=== PATIENT | female | born 1990 | race Caucasian/White ===

== ENCOUNTER 2020-10-29 10:48 | Outpatient (REF) | payer OTHER, SELFPAY | END 2020-10-29 10:49 | disposition home or self-care (01) | LOC: HO.LAB 10:48 | PROVIDERS: PCP Internal Medicine; Visit Provider Advanced Practice Midwife | DX: O21.9 Vomiting of pregnancy, unspecified (principal) | CPT/HCPCS: 81025; 87086; 87147; 99212 ==

== ENCOUNTER → 2020-11-29 11:18 | Outpatient (BNVA) | payer OTHER, SELFPAY | PROVIDERS: PCP Internal Medicine; Visit Provider Advanced Practice Midwife | DX: O21.0 Mild hyperemesis gravidarum (principal); Z3A.00 Weeks of gestation of pregnancy not specified | CPT/HCPCS: 81003; 99212 ==

== ENCOUNTER → 2020-12-02 10:05 | Outpatient (BNVA) | payer OTHER, SELFPAY | PROVIDERS: PCP Internal Medicine; Visit Provider Advanced Practice Midwife | DX: Z13.89 Encounter for screening for other disorder (principal) | CPT/HCPCS: 99212 ==

== ENCOUNTER 2020-12-04 15:29 | Outpatient (REF) | payer OTHER, SELFPAY ==
[2020-12-04 16:52] LABS: MANUAL DIFF FLAG NO
[2020-12-04 16:59] LABS: Basophils Percent Auto 0.5 % (0-2); Eosinophils Absolute Auto 0.2 X10*3/uL (0.0-0.4); Eosinophils Percent Auto 1.9 % (0-4); Hematocrit 36.2 % (37-47); Hemoglobin 11.8 g/dl (12.0-16.0); Imm Gran Abs Auto 0.03 X10*3/uL (0.00-0.03); Imm Gran Pct Auto 0.4 % (0.0-0.4); Lymphocytes Absolute Auto 1.5 X10*3/uL (1.2-4.9); Lymphocytes Percent Auto 17.7 % (20-40); Mean Corpuscular HGB Conc 32.6 g/dl (31.0-35.0); Mean Corpuscular Hemoglobin 27.4 pg (27.0-33.0); Mean Corpuscular Volume 84.2 fL (80-98); Mean Platelet Volume 10.9 fL (9.4-12.3); Monocytes Absolute Auto 0.5 X10*3/uL (0.1-1.2); Monocytes Percent Auto 5.7 % (2-11); Neutrophils Absolute Auto 6.2 X10*3/uL (2.0-8.3); Neutrophils Percent Auto 73.8 % (45-73); Platelet Count 263 X10*3/uL (160-400); Red Cell Distribution Width 12.9 % (11.0-16.0); White Blood Count 8.4 X10*3/uL (4.8-10.8)
[2020-12-04 17:22] LABS: Amphetamine Screen Urine Not Detected (Not Detect); Barbiturates, Urine Not Detected (Not Detect); Benzodiazepines Screen Urine Not Detected (Not Detect); Cannabinoid Screen Urine Not Detected (Not Detect); Cocaine Screen Urine Not Detected (Not Detect); Opiate Screen Urine Not Detected (Not Detect); Phencyclidine Screen Urine Not Detected (Not Detect)
[2020-12-04 17:44] LABS: Syphilis Screen Nonreactive (Nonreactive)
[2020-12-05 04:11] LABS: HIV AB/AG Nonreactive (Nonreactive); HIV Num 1 0.09 S/CO (0.00-0.99); ~HepC Num1 0.08 S/CO (0.00-0.79); ~Hepatitis C Antibody Nonreactive (Nonreactive)
[2020-12-05 04:12] LABS: HBsAGNum1 0.18 S/CO (0.00-0.99); Hepatitis B Surface Antigen Negative (Negative)
[2020-12-05 05:18] LABS: Rubella IgG Antibody 1.08 Index
[2020-12-05 09:07] LABS: BV Int Neg Control Negative (Negative); BV Int Pos Control Positive (Positive)
[2020-12-05 12:46] LABS: C. trachomatis RNA TMA NOT DETECTED (NOT DETECTED); N. gonorrhoeae RNA TMA NOT DETECTED (NOT DETECTED)
== END 2020-12-04 15:30 | disposition home or self-care (01) ==
LOC: HO.LAB 15:29
PROVIDERS: PCP Internal Medicine; Visit Provider Advanced Practice Midwife
DX: O99.341 Other mental disorders complicating pregnancy, first trimester (principal); F43.9 Reaction to severe stress, unspecified; Z20.2 Contact with and (suspected) exposure to infections with a predominantly sexual mode of transmission; Z3A.09 9 weeks gestation of pregnancy
CPT/HCPCS: 80307; 81003; 85025; 86762; 86780; 86787; 86803; 86850; 86900; 86901; 87086; 87340; 87389; 87480; 87491; 87510; 87591; 87660; 99212

== ENCOUNTER 2020-12-06 13:12 | Outpatient (REF) | payer OTHER, SELFPAY ==
--- NOTE | ~2020-12-06 | US_ITS ---
EXAMINATION: OBSTETRICAL ULTRASOUND, FIRST TRIMESTER HISTORY: 30-year-old at 10.0 weeks of gestation Screening for uncertain dates LMP: 09/27/2020 COMPARISON: 12/12/2019 TECHNIQUE: Real time transabdominal imaging with color and M-mode Doppler. FINDINGS: A single, live IUP CRL of 31 mm c/w 10.0wks is noted. Heart Rate: 165 beats per minute. Too early for NT measurement. Right ovary is normal. Left ovary is not seen GESTATIONAL AGE: 1. GA from LMP: 10.0 wks 2. GA from AUA: 10.0 wks ESTIMATED DATE OF DELIVERY: 1. ELIU from LMP: 07/04/2021 2. ELIU from AUA: 07/04/2021 US/US OB <= 14 weeks fetus IMPRESSION: 1. Single live IUP 2. CRL consistent with 10.0 weeks 3. Too early for NT evaluation A follow-up is been scheduled in 2 weeks for NT measurement. Thank you very much for this referral.
== END 2020-12-06 13:13 | disposition home or self-care (01) ==
LOC: HO.US 13:12
PROVIDERS: Visit Provider Advanced Practice Midwife
DX: Z34.91 Encounter for supervision of normal pregnancy, unspecified, first trimester (principal)
CPT/HCPCS: 76801

== ENCOUNTER 2020-12-20 13:59 | Outpatient (REF) | payer OTHER, SELFPAY ==
--- NOTE | ~2020-12-20 | US_ITS ---
EXAMINATION: OBSTETRICAL ULTRASOUND, FIRST TRIMESTER HISTORY: 30-year-old at 12.0 weeks of gestation NT screening COMPARISON: 12/06/2020 TECHNIQUE: Real time transabdominal imaging with color and M-mode Doppler. FINDINGS: A single, live IUP CRL of 55 mm c/w 12.1wks is noted. Heart Rate: 160 beats per minute. Normal yolk sac seen. NT was 1.3.mm. NB Present The embryo appears sonographically wnl for this GA. Left ovary contains benign cyst measuring 2.8 x 2.4 x 3.1 cm Small subchorionic bleed noted. GESTATIONAL AGE: 1. Established GA: 12.0 wks 2. GA from AUA: 12.1 wks ESTIMATED DATE OF DELIVERY: 1. Established ELIU: 07/04/2021 2. ELIU from AUA: 07/03/2021 US/US OB 1T nuc measure IMPRESSION: 1. A single live IUP 2. Size equals dates 3. NT of 1.3 mm 4. Small subchorionic hematoma MFM Consultation: I reviewed the ultrasound findings along with significance of NT measurement. The NT of less than 3mm is generally reassuring. However, the sensitivity for T21 detection is only 60%. I reviewed the availability of serum aneuploidy screening which includes cell-free DNA and placental protein based tests. I discussed the sensitivity, false-positive rate, and other limitations associated with each test. I also reviewed the availability of invasive diagnostic tests that are associated small but definite risk of miscarriage. We also reviewed the differences between screening tests and diagnostic tests. After our discussion, she opted for the First trimester screening that is based on cell-free DNA or non-invasive testing (NIPT). The result will be faxed to your office in approximately 7 days. A follow up at 18 weeks for survey has been scheduled. Thank you very much for this referral. Total time 20 minutes. The time spent was devoted to counseling the patient about the disease and diagnosis, coordinating care including reviewing her records, pertinent lab data and studies, as well as discussing diagnostic evaluation and workup, plan therapeutic interventions and future disposition of care. This includes any additional research needed to obtain further information in formulating the plan of care of this patient. This note was generated with a voice recognition program. Please excuse any errors which may have been overlooked during my review of this note. Sometimes these errors may affect the content or meaning of a given sentence.
[2020-12-23 20:16] LABS: C. trachomatis RNA TMA NOT DETECTED (NOT DETECTED); N. gonorrhoeae RNA TMA NOT DETECTED (NOT DETECTED)
== END 2020-12-20 14:00 | disposition home or self-care (01) ==
LOC: HO.US 13:59
PROVIDERS: Visit Provider Advanced Practice Midwife
DX: Z34.91 Encounter for supervision of normal pregnancy, unspecified, first trimester (principal); Z20.2 Contact with and (suspected) exposure to infections with a predominantly sexual mode of transmission; Z36.82 Encounter for antenatal screening for nuchal translucency
CPT/HCPCS: 36415; 76813; 87491; 87591

== ENCOUNTER 2020-12-25 13:03 | Outpatient (REF) | payer OTHER, SELFPAY ==
[2020-12-26 10:19] LABS: BV Int Neg Control Negative (Negative); BV Int Pos Control Positive (Positive)
[2020-12-26 20:51] LABS: C. trachomatis RNA TMA NOT DETECTED (NOT DETECTED); N. gonorrhoeae RNA TMA NOT DETECTED (NOT DETECTED)
[2021-01-08 15:22] LABS: HPV mRNA E6/E7 rflx Not Detected (Not Detected)
== END 2020-12-25 13:04 | disposition home or self-care (01) ==
LOC: HO.LAB 13:03
PROVIDERS: PCP Internal Medicine; Visit Provider Advanced Practice Midwife
DX: O21.0 Mild hyperemesis gravidarum (principal); O99.891 Other specified diseases and conditions complicating pregnancy; N89.8 Other specified noninflammatory disorders of vagina; O26.891 Other specified pregnancy related conditions, first trimester; R87.610 Atypical squamous cells of undetermined significance on cytologic smear of cervix (ASC-US); O99.820 Streptococcus B carrier state complicating pregnancy; Z3A.12 12 weeks gestation of pregnancy
CPT/HCPCS: 36415; 87480; 87491; 87510; 87591; 87624; 87660; 88141; 88142; 99212

== ENCOUNTER → 2021-01-22 13:34 | Outpatient (BNVA) | payer OTHER, SELFPAY | PROVIDERS: PCP Internal Medicine; Visit Provider Advanced Practice Midwife | DX: Z34.90 Encounter for supervision of normal pregnancy, unspecified, unspecified trimester (principal); Z3A.16 16 weeks gestation of pregnancy | CPT/HCPCS: 81003; 90686; 99212 ==

== ENCOUNTER 2021-02-07 12:57 | Outpatient (REF) | payer OTHER, SELFPAY ==
--- NOTE | ~2021-02-07 | US_ITS ---
EXAMINATION: US OBSTETRICAL CLINICAL INFORMATION: 30-year-old at 19.0 weeks of gestation Screening for anomaly COMPARISON: 12/20/2020 TECHNIQUE: Real-time transabdominal ultrasound was performed using C1-5 megahertz transducer. FINDINGS: A single, active, fetus is seen in breech presentation. The placenta is anterior without previa, and the amniotic fluid volume is wnl. MEASUREMENTS: 1. Biparietal Diameter: 4.1 cm; 18.4 wks 2. Occipital Frontal Diameter: 5.9 cm 3. Head Circumference: 16.5 cm; 19.2 wks 4. Abdominal Circumference: 12.9 cm; 18.3 wks 5. Femur Length: 2.9 cm; 18.6 wks 6. Humerus Length: 3.0 cm; 19.6 wks 7. Tibia Length: 2.5 cm; 18.5 wks 8. Ulna Length: 2.7 cm; 20.0 wks 9. Lateral ventricle: 0.6 cm 10. Cerebellum: 1.87 cm; 19.3 wks 11. Cisterna Magna: 0.3 cm 12. Nuchal Fold: 4.6 mm 13. Heart Rate: 135 beats per minute Rt ovary: normal Lt ovary: normal Cervical length 3.6 cm on T/A. GESTATIONAL AGE: 1. Established GA: 19.0 wks 2. GA from [facility]: 18.6 wks ESTIMATED DATE OF DELIVERY: 1. Established ELIU: 07/04/2021 2. ELIU from [facility]: 07/05/2021 ANATOMY: The visualized anatomy includes but not limited to: 1. Cranium: Normal 2. Intracranial anatomy: cavum septum pellucidi, lateral ventricles, choroid plexus, cerebellum, posterior fossa, third and fourth ventricles. 3. face: orbits, lip/palate, profile, nasal bone 4. Heart: four-chamber view of the heart, ventricular septum, foramen ovale, pulmonary vein, left and right outflow tracts, three-vessel view, 3 vessel trachea view, aortic and ductal arches, situs.. 5. Diaphragm: Normal 6. Abdominal wall: Normal 7. Cord Insertion: Normal 8. Spine: Cervical, thoracic, lumbar, sacral. 9. Stomach: Normal size and shape 10. Right Kidney: Normal 11. Left Kidney: Normal 12. 3 vessel cord: Normal 13. Upper extremity: Open hands, fifth digit. 14. Lower extremity: Tibia, fibula, bilateral feet. 15. Bladder: Normal 16. Genitalia: Male, patient aware US/US OB /maternal detail IMPRESSION: 1. Single, living, intrauterine with appropriate biometry. 2. Normal survey DISCUSSION: I reviewed today's ultrasound findings. We discussed the limitations of ultrasound in diagnosing aneuploidy and other congenital abnormalities. I reviewed the differences between screening test and diagnostic test. Amniocentesis was discussed and declined. She was informed that the baseline incidence of congenital abnormalities is approximately 3-5%. Not all these conditions are diagnosable in utero. RECOMMENDATIONS: Follow-up when necessary Thank you for allowing me to participate in her care. Total time 20 minutes. The time spent was devoted to counseling the patient about the disease and diagnosis, coordinating care including reviewing her records, pertinent lab data and studies, as well as discussing diagnostic evaluation and workup, plan therapeutic interventions and future disposition of care. This includes any additional research needed to obtain further information in formulating the plan of care of this patient. This note was generated with a voice recognition program. Please excuse any errors which may have been overlooked during my review of this note. Sometimes these errors may affect the content or meaning of a given sentence.
== END 2021-02-07 12:58 | disposition home or self-care (01) ==
LOC: HO.US 12:57
PROVIDERS: PCP Internal Medicine; Visit Provider Advanced Practice Midwife
DX: Z36.3 Encounter for antenatal screening for malformations (principal)
CPT/HCPCS: 76811

== ENCOUNTER 2021-02-21 10:25 | Outpatient (REF) | payer OTHER, SELFPAY ==
[2021-02-21 11:48] LABS: MANUAL DIFF FLAG NO
[2021-02-21 11:55] LABS: Basophils Absolute Auto 0.1 X10*3/uL (0.0-0.2); Basophils Percent Auto 0.5 % (0-2); Eosinophils Absolute Auto 0.2 X10*3/uL (0.0-0.4); Eosinophils Percent Auto 2.2 % (0-4); Hematocrit 34.4 % (37-47); Hemoglobin 10.9 g/dl (12.0-16.0); Imm Gran Abs Auto 0.05 X10*3/uL (0.00-0.03); Imm Gran Pct Auto 0.5 % (0.0-0.4); Lymphocytes Absolute Auto 1.3 X10*3/uL (1.2-4.9); Lymphocytes Percent Auto 13.3 % (20-40); Mean Corpuscular HGB Conc 31.7 g/dl (31.0-35.0); Mean Corpuscular Hemoglobin 26.6 pg (27.0-33.0); Mean Corpuscular Volume 83.9 fL (80-98); Monocytes Absolute Auto 0.5 X10*3/uL (0.1-1.2); Monocytes Percent Auto 4.7 % (2-11); Neutrophils Absolute Auto 7.8 X10*3/uL (2.0-8.3); Neutrophils Percent Auto 78.8 % (45-73); Platelet Count 229 X10*3/uL (160-400); Red Cell Distribution Width 13.9 % (11.0-16.0); White Blood Count 9.9 X10*3/uL (4.8-10.8)
[2021-02-21 12:31] LABS: Alanine Aminotransferase 36 U/L (0-31); Anion Gap 12 (12-20); Aspartate Amino Transferase 29 U/L (5-31); Blood Urea Nitrogen 6 mg/dL (9-16); Calcium 8.9 mg/dL (8.4-10.2); Carbon Dioxide 23 mmol/L (22-29); Chloride 106 mmol/L (96-108); Estimated Glomerular Filt Rate > 60; Glucose Fasting 77 mg/dL (60-99); Potassium 4.4 mmol/L (3.3-5.1); Sodium 137 mmol/L (135-145)
== END 2021-02-21 10:26 | disposition home or self-care (01) ==
LOC: HO.LAB 10:25
PROVIDERS: Nurse Practitioner Family; PCP Internal Medicine; Visit Provider Obstetrics & Gynecology
DX: O26.892 Other specified pregnancy related conditions, second trimester (principal); U07.1 COVID-19; R10.11 Right upper quadrant pain; Z3A.21 21 weeks gestation of pregnancy
CPT/HCPCS: 36415; 80048; 84450; 84460; 85025; 99212

== ENCOUNTER 2021-03-27 10:48 | Outpatient (REF) | payer OTHER, SELFPAY ==
[2021-03-27 12:59] LABS: Hematocrit 32.4 % (37-47); Hemoglobin 10.2 g/dl (12.0-16.0); Mean Corpuscular HGB Conc 31.5 g/dl (31.0-35.0); Mean Corpuscular Hemoglobin 26.6 pg (27.0-33.0); Mean Corpuscular Volume 84.6 fL (80-98); Mean Platelet Volume 11.3 fL (9.4-12.3); Platelet Count 220 X10*3/uL (160-400); Red Blood Count 3.83 X10*6/uL (4.20-5.50); White Blood Count 9.7 X10*3/uL (4.8-10.8)
[2021-03-28 03:56] LABS: Syphilis Screen Nonreactive (Nonreactive)
== END 2021-03-27 10:49 | disposition home or self-care (01) ==
LOC: HO.LAB 10:48
PROVIDERS: PCP Internal Medicine; Visit Provider Advanced Practice Midwife
DX: Z34.92 Encounter for supervision of normal pregnancy, unspecified, second trimester (principal); Z3A.25 25 weeks gestation of pregnancy
CPT/HCPCS: 36415; 81003; 85027; 86780; 99212

== ENCOUNTER 2021-04-01 10:31 | Outpatient (REF) | payer OTHER, SELFPAY ==
[2021-04-01 13:59] LABS: Glucose 1 Hour PP 50gm Dose 114 mg/dL (60-140)
[2021-04-01 14:07] LABS: Glucose Urine UA NEG (NEG); Leukocyte Esterase Urine NEG (NEG); Nitrite Urine NEG (NEG); PH 6.5 (5.0-8.0); Specific Gravity - Urine 1.015 (1.005-1.025); Urine Blood NEG (NEG); Urine Ketones NEG (NEG); Urine Protein TRACE MG/DL (NEG-TRACE)
[2021-04-01 14:08] LABS: Appearance Urine HAZY; Color Urine YELLOW
[2021-04-01 14:20] LABS: RBC Urine 0-2 /HPF (0); Squamous Epithelial Cell Urine 1+ /LPF; WBC Urine 0-2 /HPF (0-4)
== END 2021-04-01 10:32 | disposition home or self-care (01) ==
LOC: HO.LAB 10:31
PROVIDERS: PCP Internal Medicine; Visit Provider Advanced Practice Midwife
DX: O26.892 Other specified pregnancy related conditions, second trimester (principal); R10.9 Unspecified abdominal pain; Z3A.26 26 weeks gestation of pregnancy
CPT/HCPCS: 36415; 81001; 81003; 87086; 99212

== ENCOUNTER 2021-04-17 09:55 | Outpatient (REF) | payer OTHER, SELFPAY ==
[2021-04-17 11:55] LABS: Hematocrit 32.2 % (37-47); Hemoglobin 10.3 g/dl (12.0-16.0); Mean Corpuscular Hemoglobin 27.2 pg (27.0-33.0); Mean Corpuscular Volume 85.2 fL (80-98); Mean Platelet Volume 10.7 fL (9.4-12.3); Platelet Count 220 X10*3/uL (160-400); Red Blood Count 3.78 X10*6/uL (4.20-5.50); Red Cell Distribution Width 14.5 % (11.0-16.0); White Blood Count 8.3 X10*3/uL (4.8-10.8)
[2021-04-17 12:14] LABS: Alanine Aminotransferase 8 U/L (0-31); Aspartate Amino Transferase 13 U/L (5-31)
[2021-04-17 12:15] LABS: Creatinine Urine 177.02 mg/dL; Protein/Creatinine Ratio, Ur 0.08 (<0.2); Total Protein Urine Random 15 mg/dL (<12)
== END 2021-04-17 09:56 | disposition home or self-care (01) ==
LOC: HO.LAB 09:55
PROVIDERS: PCP Internal Medicine; Visit Provider Advanced Practice Midwife
DX: O26.899 Other specified pregnancy related conditions, unspecified trimester (principal); R51.9 Headache, unspecified; R79.89 Other specified abnormal findings of blood chemistry
CPT/HCPCS: 36415; 81003; 84156; 84450; 84460; 85027; 99212

== ENCOUNTER → 2021-05-05 14:39 | Outpatient (BNVA) | payer OTHER, SELFPAY | PROVIDERS: PCP Internal Medicine; Visit Provider Advanced Practice Midwife | DX: O99.820 Streptococcus B carrier state complicating pregnancy (principal); O26.893 Other specified pregnancy related conditions, third trimester; R94.5 Abnormal results of liver function studies; Z3A.31 31 weeks gestation of pregnancy | CPT/HCPCS: 99212 ==

== ENCOUNTER 2021-05-20 14:45 | Outpatient (REF) | payer OTHER, SELFPAY | END 2021-05-20 14:46 | disposition home or self-care (01) | LOC: HO.LAB 14:45 | PROVIDERS: PCP Internal Medicine; Visit Provider Advanced Practice Midwife | DX: O26.893 Other specified pregnancy related conditions, third trimester (principal); R10.9 Unspecified abdominal pain; Z3A.33 33 weeks gestation of pregnancy | CPT/HCPCS: 87086; 99212 ==

== ENCOUNTER → 2021-06-04 09:50 | Outpatient (BNVA) | payer OTHER, SELFPAY | PROVIDERS: PCP Internal Medicine; Visit Provider Obstetrics & Gynecology | DX: Z34.83 Encounter for supervision of other normal pregnancy, third trimester (principal); Z3A.35 35 weeks gestation of pregnancy | CPT/HCPCS: 99212 ==

== ENCOUNTER 2021-06-13 09:43 | Outpatient (REF) | payer OTHER, SELFPAY ==
[2021-06-13 14:00] LABS: CT PCR DETECTED (Not Detect.); NG PCR NOT DETECTED (Not Detect.)
[2021-06-15 11:57] LABS: BV Int Neg Control Negative (Negative); BV Int Pos Control Positive (Positive)
== END 2021-06-13 09:44 | disposition home or self-care (01) ==
LOC: HO.LAB 09:43
PROVIDERS: PCP Internal Medicine; Visit Provider Advanced Practice Midwife
DX: O32.1XX0 Maternal care for breech presentation, not applicable or unspecified (principal)
CPT/HCPCS: 81003; 87480; 87491; 87510; 87591; 87660; 99212

== ENCOUNTER 2021-06-13 11:18 | Outpatient (REF) | payer OTHER, SELFPAY ==
--- NOTE | ~2021-06-13 | US_ITS ---
EXAMINATION: OB ULTRASOUND CLINICAL INFORMATION: Assess position COMPARISON: 02/07/2021 TECHNIQUE: Standard transabdominal ultrasound FINDINGS: Single live region presenting cephalic position. Placenta is anterior grade 2. Normal amount of amniotic fluid. SHARON 12 cm Normal heart rate of 158 bpm. Biophysical profile performed with assessment of breathing, gross movement, tone, reactive heart rate, and quantitative amniotic fluid index. breathin/2 Gross body movement: 2/2 tone: 2/2 Reactive heart rate: 2/2 Quantitative amniotic fluid volume: 2/2 US/US OB limited IMPRESSION: Normal biophysical profile. Fetus present in cephalic position.
== END 2021-06-13 11:19 | disposition home or self-care (01) ==
LOC: HO.US 11:18
PROVIDERS: Visit Provider Advanced Practice Midwife
DX: O32.1XX0 Maternal care for breech presentation, not applicable or unspecified (principal); Z3A.00 Weeks of gestation of pregnancy not specified
CPT/HCPCS: 76815

== ENCOUNTER → 2021-06-20 09:21 | Outpatient (BNVA) | payer OTHER, SELFPAY | PROVIDERS: PCP Internal Medicine; Visit Provider Advanced Practice Midwife | DX: O98.313 Other infections with a predominantly sexual mode of transmission complicating pregnancy, third trimester (principal); A74.9 Chlamydial infection, unspecified; O99.343 Other mental disorders complicating pregnancy, third trimester; F43.9 Reaction to severe stress, unspecified; Z3A.38 38 weeks gestation of pregnancy | CPT/HCPCS: 99212 ==

== ENCOUNTER 2021-06-27 13:16 | Outpatient (REF) | payer OTHER, SELFPAY ==
[2021-06-28 00:58] LABS: CT PCR NOT DETECTED (Not Detect.); NG PCR NOT DETECTED (Not Detect.)
== END 2021-06-27 13:17 | disposition home or self-care (01) ==
LOC: HO.LAB 13:16
PROVIDERS: PCP Internal Medicine; Visit Provider Advanced Practice Midwife
DX: O26.893 Other specified pregnancy related conditions, third trimester (principal); A74.9 Chlamydial infection, unspecified; Z20.2 Contact with and (suspected) exposure to infections with a predominantly sexual mode of transmission; Z3A.39 39 weeks gestation of pregnancy
CPT/HCPCS: 81003; 87491; 87591; 99212

== ENCOUNTER → 2021-07-08 11:19 | Outpatient (BNVA) | payer OTHER, SELFPAY | PROVIDERS: PCP Internal Medicine; Visit Provider Obstetrics & Gynecology | DX: O48.0 Post-term pregnancy (principal); Z3A.40 40 weeks gestation of pregnancy | CPT/HCPCS: 99212 ==

== ENCOUNTER 2021-07-11 14:00 | Outpatient (REF) | payer OTHER, SELFPAY ==
--- NOTE | ~2021-07-11 | US_ITS ---
EXAMINATION: OBSTETRICAL ULTRASOUND, Follow up HISTORY: 31-year-old at the 41.0 weeks of gestation Postterm Size date discrepancy COMPARISON: 06/13/2021 TECHNIQUE: Real time transabdominal imaging with color and M-mode Doppler. PRESENTATION: Vertex PLACENTA LOCATION: Anterior without previa AMNIOTIC FLUID: SHARON 2.5 cm MEASUREMENTS: 1. Biparietal Diameter: 9.2 cm; 37.3 wks 2. Head Circumference: 33.7 cm; 38.5 wks 3. Abdominal Circumference: 33.2 cm; 37.1 wks 4. Femur Length: 7.3 cm; 37.1 wks 5. Heart Rate: 138 beats per minute WEIGHT: EFW: 3168 grams (7 lbs 0 oz) --N/A BIOPHYSICAL PROFILE: Motion: 2 Tone: 2 Breathin Amniotic Fluid: 2 Total score: 8/8 GESTATIONAL AGE: 1. Established GA: 41.0 wks 2. GA from AUA: 37.5 wks ESTIMATED DATE OF DELIVERY: 1. Established ELIU: 07/04/2021 2. ELIU from AUA: 07/27/2021 US/US OB follow up IMPRESSION: 1. A single active fetus is in vertex presentation 2. Size equals dates 3. BPP of 8/8 with SHARON of 2.5 cm. She reports having had regular contractions overnight. Her cervix is 3 cm dilated. In addition she is reporting fluid leakage. I reviewed today's findings and gave her reassurance. The amniotic fluid index is low. Recommended that she proceeded to labor and delivery for early labor management. Thank you very much for this referral. Total time 20 minutes. The time spent was devoted to counseling the patient about the disease and diagnosis, coordinating care including reviewing her records, pertinent lab data and studies, as well as discussing diagnostic evaluation and workup, plan therapeutic interventions and future disposition of care. This includes any additional research needed to obtain further information in formulating the plan of care of this patient. This note was generated with a voice recognition program. Please excuse any errors which may have been overlooked during my review of this note. Sometimes these errors may affect the content or meaning of a given sentence.
== END 2021-07-11 14:01 | disposition home or self-care (01) ==
LOC: HO.US 14:00
PROVIDERS: PCP Internal Medicine; Visit Provider Advanced Practice Midwife
DX: O48.0 Post-term pregnancy (principal)
CPT/HCPCS: 59025; 76816; 81003; 99212

== ENCOUNTER → 2021-09-17 12:52 | Outpatient (BNVA) | payer OTHER, SELFPAY | PROVIDERS: PCP Internal Medicine; Visit Provider Obstetrics & Gynecology | DX: Z39.2 Encounter for routine postpartum follow-up (principal); Z30.09 Encounter for other general counseling and advice on contraception; R87.610 Atypical squamous cells of undetermined significance on cytologic smear of cervix (ASC-US) | CPT/HCPCS: 99212 ==

== ENCOUNTER → 2021-10-03 13:25 | Outpatient (BNVA) | payer OTHER, SELFPAY | PROVIDERS: PCP Internal Medicine; Visit Provider Obstetrics & Gynecology | DX: Z30.42 Encounter for surveillance of injectable contraceptive (principal) | CPT/HCPCS: 96372 ==

== ENCOUNTER 2021-12-31 14:27 | Outpatient (REF) | payer OTHER, SELFPAY | END 2021-12-31 14:28 | disposition home or self-care (01) | LOC: HO.LAB 14:27 | PROVIDERS: PCP Internal Medicine; Visit Provider Obstetrics & Gynecology | DX: R87.610 Atypical squamous cells of undetermined significance on cytologic smear of cervix (ASC-US) (principal) | CPT/HCPCS: 57454; 88305 ==

== ENCOUNTER → 2022-01-19 15:24 | Outpatient (BNVA) | payer OTHER, SELFPAY | PROVIDERS: Visit Provider Obstetrics & Gynecology | DX: R87.610 Atypical squamous cells of undetermined significance on cytologic smear of cervix (ASC-US) (principal); Z30.2 Encounter for sterilization | CPT/HCPCS: 99212 ==

== ENCOUNTER 2022-01-23 09:25 | Day surgery (SDC) | payer OTHER, SELFPAY ==
--- NOTE | 2022-01-21 13:35 | HO.ANESPROP2 ---
Documented by User: Val Umaña NP 01/21/22 13:36 HPI - Anesthesia Eval Consult details Narrative: 31yo F for Tubal Ligation Laparoscopic using bilateral cauterization,poss bilateral salpingectomy, PMFSH Active Problems Active Problems: All Active Problems (Updated 01/19/22 @ 15:48 by Navi Malcolm MD) Sterilization (Acute) Hyperemesis affecting , antepartum (Acute) (Acute) Potential exposure to STD (Acute) Vaginal discharge during (Acute) Group B streptococcal bacteriuria (Acute) Cervical cancer screening (Acute) Abdominal cramping affecting , antepartum (Acute) Supervision of normal in third trimester (Acute) Depression screen (Acute) Mild headache (Acute) Heartburn (Acute) Breech presentation of fetus palpable vaginally (Acute) Chlamydia infection (Acute) Encounter for supervision of normal in third trimester (Acute) Post term (Acute) state (Acute) ASCUS of cervix with negative high risk HPV (Acute) Family planning (Acute) Depot contraception (Acute) COVID-19 (Acute) Past Medical History Medical History History of COVID-19 History of kidney stones Family History Family History Father Medical history unknown Mother Heart valve problem Brother Epilepsy Maternal Grandmother Breast cancer Paternal Grandmother Hypertension Surgical History Surgical History History of excision of mass Social History Social History Household Members: Significant Other and Children Alcohol intake: never Patient Tobacco Use Status: Never used Tobacco Advance Directives: No Advance Directives Information Provided: Yes Sexual orientation: Straight/Heterosexual Gender identity: Female Meds Allergies Allergy/AdvReac Type Severity Reaction Status Date / Time vancomycin [VANCOMYCIN] Allergy Severe Anaphylaxis Verified 01/23/22 10:05 Exam Exam Date and Time: January 21, 2022 1335 Assessment and Plan Assessment Anesthesia Assessment: Chart Reviewed Documented by User: Royal Gibbs MD 01/23/22 10:17 PMFSH Past Medical History Medical History History of COVID-19 History of kidney stones Family History Family History Father Medical history unknown Mother Heart valve problem Brother Epilepsy Maternal Grandmother Breast cancer Paternal Grandmother Hypertension Family history of problems with anesthesia: No Surgical History Surgical History History of excision of mass History of Problems with Anesthesia: No Social History Social History Household Members: Significant Other and Children Alcohol intake: never Patient Tobacco Use Status: Never used Tobacco Advance Directives: No Advance Directives Information Provided: Yes Sexual orientation: Straight/Heterosexual Gender identity: Female Meds Allergies Allergy/AdvReac Type Severity Reaction Status Date / Time vancomycin [VANCOMYCIN] Allergy Severe Anaphylaxis Verified 01/23/22 10:05 Exam Airway Mallampati Class: II TM Dist: >3cm Neck ROM: Full Assessment and Plan Assessment Anesthesia Assessment: Anesthesia Plan Discussed Final Anesthetic Review Family History of Problems with Anesthesia: No History of Problems with Anesthesia: No NPO: Yes ASA Class: I Final Preanesthetic Review: No Changes in Pt Med Stat, Meds/Allgs Chart Reviewed, Consent Obtained/Reviewed and Anes Risks/Benef Reviewed Patient Risk: Low Procedure Risk: Low Anesthetic Plan Anesthetic Plan: GA Disposition: Standard PACU
[2022-01-23] VITALS (12 sets, daily range): BP systolic 97–113; BP diastolic 47–63; PULSE 63–89; RESP 14–18; TEMP 36.5–37.3; O2SAT 96–100; BMI 30.6
[2022-01-23 10:27] LABS: UPreg QC Valid YES; Urine Pregnancy NEGATIVE (NEGATIVE)
--- NOTE | 2022-01-23 10:32 | MHC.SHP ---
Pre-Procedural Eval Section A Date of Service: 01/23/22 The patient is an INPATIENT: No Changes since office visit: No Cold of Flu in the past 2 weeks, No New Medical Problems, No Changes in Medication and No Patient answered all questions The History & Physical has been completed within 30 days and I have reviewed it.: Yes Section B Chief Complaint: general counseling and advice on contraception Allergies: Allergies Allergy/AdvReac Type Severity Reaction Status Date / Time vancomycin [VANCOMYCIN] Allergy Severe Anaphylaxis Verified 01/23/22 10:05 Plan Diagnosis/Plan: Unchanged I have reviewed the history and physical and performed a pertinent physical examination on my patient. No changes have occurred unless specified.
[2022-01-23] MEDS: Lactated Ringers 1,000 ML 100 ML IVCONT (10:43)
[2022-01-23] MEDS: Acetaminophen 325 MG TABLET 650 MG PO (10:46)
--- NOTE | 2022-01-23 12:08 | P.BOP_ITS ---
Brief Operative Note Date of Service: 01/23/22 Pre-op diagnosis: Completed family, requesting permanent sterilization Post-op diagnosis: same Procedure: Laparoscopic bliateral salpingectomy Surgeon: Navi Malcolm MD Anesthesia: GETA Was an Domestic Travel Consultant used for this Procedure?: No Estimated blood loss (mL): 0 Pathology: other (Right & left fallopian tubes) Condition: stable Disposition: PACU
--- NOTE | 2022-01-23 12:09 | W.PM.OPN ---
Operative Note Operative Note Date of Service: 01/23/22 Narrative: PREOPERATIVE DIAGNOSIS:?Completed family requesting?permanent sterilization POSTOPERATIVE DIAGNOSIS:?Completed family requesting?permanent sterilization QBL: Minimal Anesthesia: GETA SURGEON:? Navi Malcolm MD?? Central Office Supervisor: Complications: None Pathology: Right and left Fallopian tubes? DESCRIPTION OF PROCEDURE:?The patient was taken to the OR where general anesthesia was easily obtained. The patient was then prepped and draped in a sterile fashion and placed in dorsal lithotomy position. A speculum was introduced into the patient?s vagina for cervical visualization. Once the cervix was visualized, a single-toothed tenaculum was applied to the upper lip of the cervix, and a Humi manipulator was introduced into the patient?s cervix. The single tooth tenaculum was then removed and hemostasis was assured?using pressure. a Jaramillo catheter?was inserted and clear urine started draining. Gloves were changed to clean ones. Attention was then drawn to the abdomen where a 10 mm longitudinal incision was done intra umbilical and carried down all the way to the fascia, which was tented?up using 2 Vasu clamps and was nicked in the midline and then extended on both end of the incision?, them using 2 pick?ups the peritoneum?was entered with Metzenbaum scissors and under direct visualization, a 10 mm Storm trocar was introduced into the patient?s abdomen. Once intraperitoneal placement was confirmed with direct visualization, pneumoperitoneum was started & was easily obtained.Then, two fingerbreadths above the pubic symphysis and towards the?right lower quadrant, under direct visualization, a 5 mm trocar was then introduced into the patient?s abdomen. and a 3rd one on the left?lower quadrant was placed?in a similar manner. The patient was placed in Trendelenburg position, Inspection revealed normal pelvic structures & bilateral ovaries and fallopian tubes. Attention was then drawn to the left fallopian tube. The IP ligament was identified and fallopian tube was then grasped by the fimbria and incised from the mesosalpinx using ligasure device, using cautery for hemostasis and cutting afterwards a bite at a time all the way to the cornual end of the left tube. The same was done?on the?right fallopian tube. Good hemostasis was noted from both fallopian tube sites and the operative site. Specimen were then removed from the patient?s abdomen. Copious irrigation was done. Once good hemostasis was noted from the patient?s abdomen, pneumoperitoneum was deflated and all trocars were removed. Infraumbilical fascia was closed with 0 Vicryl and interrupted suture. The skin was closed with 4-0 Vicryl. The Right and left?lower quadrant ports were closed with 0 Vicryl. Bupivicaine 0.25 10 cc were injected subcuticularly in the 3 incisions. Then speculum was put back in the vagina inspection revealed?hemostasis at the site of the tenaculum, the?humi manipulator was removed? and Jaramillo was draining clear urine was taken out too. Sponge, lap and needle counts were correct x2. The patient was taken to the recovery room in stable condition.
[2022-01-23] MEDS: fentaNYL citrate/PF 100 MCG/2 ML VIAL 50 MCG IVPUSH (12:24)
[2022-01-23] MEDS: oxyCODONE HCl Immed Release 5 MG TABLET PO (12:24)
[2022-01-23] MEDS: ondansetron HCL 4 MG/2 ML VIAL IVPUSH (13:51)
== END 2022-01-23 15:21 | disposition home or self-care (01) ==
PROVIDERS: PCP Internal Medicine; Visit Provider Obstetrics & Gynecology
PROC: (CPT 58670; principal; 2022-01-23 11:20)
DX: Z30.2 Encounter for sterilization (principal); Z88.1 Allergy status to other antibiotic agents
CPT/HCPCS: 58661; 81025; 88302; J1100; J1170; J2250; J2405; J2550; J3010

== ENCOUNTER → 2022-03-05 10:03 | Outpatient (BNVA) | payer OTHER, SELFPAY | PROVIDERS: PCP Internal Medicine; Visit Provider Obstetrics & Gynecology | DX: Z48.816 Encounter for surgical aftercare following surgery on the genitourinary system (principal); Z90.79 Acquired absence of other genital organ(s) | CPT/HCPCS: 99212 ==

== ENCOUNTER 2022-11-03 11:26 | Outpatient (REF) | payer OTHER, SELFPAY ==
[2022-11-03 13:24] LABS: Hematocrit 37.8 % (37.0-47.0); Hemoglobin 12.1 g/dl (12.0-16.0); Mean Corpuscular Hemoglobin 26.2 pg (27.0-33.0); Mean Platelet Volume 10.8 fL (9.4-12.3); Platelet Count 269 X10*3/uL (160-400); Red Blood Count 4.61 X10*6/uL (4.20-5.50); Red Cell Distribution Width 13.2 % (11.0-16.0)
[2022-11-03 18:15] LABS: CT PCR NOT DETECTED (Not Detect.); NG PCR NOT DETECTED (Not Detect.)
[2022-11-04 06:44] LABS: Syphilis Screen Nonreactive (Nonreactive)
[2022-11-04 08:11] LABS: HBsAGNum1 0.41 S/CO (0.00-0.99); HIV AB/AG Nonreactive (Nonreactive); HIV Num 1 0.06 S/CO (0.00-0.99); Hepatitis B Surface Antigen Negative (Negative); ~HepC Num1 0.09 S/CO (0.00-0.79); ~Hepatitis C Antibody Nonreactive (Nonreactive)
[2022-11-04 10:01] LABS: BV Int Neg Control Negative (Negative); BV Int Pos Control Positive (Positive)
== END 2022-11-03 11:27 | disposition home or self-care (01) ==
LOC: HO.LAB 11:26
PROVIDERS: PCP Internal Medicine; Visit Provider Advanced Practice Midwife
DX: Z20.2 Contact with and (suspected) exposure to infections with a predominantly sexual mode of transmission; Z86.2 Personal history of diseases of the blood and blood-forming organs and certain disorders involving the immune mechanism
CPT/HCPCS: 0353U; 36415; 85027; 86780; 86803; 87340; 87389; 87480; 87510; 87660

== ENCOUNTER 2022-11-03 13:38 | Outpatient (REF) | payer OTHER, SELFPAY ==
[2022-11-12 01:29] LABS: HPV 16 RNA NOT DETECTED (NOT DETECTED); HPV mRNA E6/E7 rflx Detected (Not Detected)
== END 2022-11-03 13:39 | disposition home or self-care (01) ==
LOC: HO.LNP 13:38
PROVIDERS: Visit Provider Advanced Practice Midwife
DX: Z01.419 Encounter for gynecological examination (general) (routine) without abnormal findings (principal); Z20.2 Contact with and (suspected) exposure to infections with a predominantly sexual mode of transmission; Z86.2 Personal history of diseases of the blood and blood-forming organs and certain disorders involving the immune mechanism
CPT/HCPCS: 87624; 87625; 88142

== ENCOUNTER 2023-01-26 13:59 | Outpatient (REF) | payer OTHER, SELFPAY ==
--- NOTE | ~2023-01-26 | US_ITS ---
EXAMINATION: US SOFT TISSUE HEAD/NECK CLINICAL INFORMATION: Lump below right occipital region. COMPARISON: CT head of 04/07/2019. TECHNIQUE: Linear transducer grayscale and color Doppler examination of the right occipital area and right posterior/lateral neck. FINDINGS: Where patient indicates lump about the right occipital region no abnormal cystic or solid mass identified. No region of abnormal distal sound shadowing was seen. No edematous change in the soft tissues is seen. The lump about the right posterior lateral neck corresponds to a normal-appearing lymph node measuring 1.3 x 0.9 x 0.4 cm in size which is well-circumscribed with echogenic central region and no evidence of cortical thickening or lobulation. Vascular pedicle is present. US/US soft tiss head and/or neck IMPRESSION: No suspicious abnormality seen about the right occipital region. Lump in the right posterior lateral neck corresponds to a normal-appearing lymph node.
== END 2023-01-26 14:00 | disposition home or self-care (01) ==
LOC: HO.US 13:59
PROVIDERS: PCP Internal Medicine; Visit Provider Nurse Practitioner Family
DX: R22.1 Localized swelling, mass and lump, neck (principal)
CPT/HCPCS: 76536

== ENCOUNTER 2023-06-08 09:24 | Emergency (ER) | payer OTHER, SELFPAY ==
[2023-06-08 09:42] VITALS: BP 129/86; PULSE 88; RESP 16; TEMP 36.7; O2SAT 99; BMI 30.4
--- NOTE | 2023-06-08 11:52 | ED_ITS ---
HPI - General Adult General Chief complaint: General Medical Stated complaint: Itchy/painful scalp and ears Time Seen by Provider: 06/08/23 11:21 Source: patient and RN notes reviewed Mode of arrival: ambulatory Limitations: no limitations History of Present Illness HPI narrative: This is a 32-year-old female, with no known past medical conditions, presenting to the emergency department with complaints of itchy, painful rash on scalp for years worsening over the last few months. She has tried cllj-izn-kxihlkr dandruff shampoo without any relief. She states that she went to [facility] and was told that there was nothing wrong with her scalp so she decided to shave her entire head and returned to the emergency department again to be re-evaluated. She is very tearful regarding this situation. She has never been prescribed any medications to treat her current symptoms. Patient reports no fevers, chills, chest pain, shortness from, pain, nausea, diarrhea. She otherwise is feeling well. No other complaints or concerns at this time. MD complaint: Rash Onset (ago): year(s) Location: head Radiation: non-radiation Severity: moderate Quality: burning and aching Pain Consistency: constant Relieving factors: none Exacerbating factors: none Associated symptoms: denies other symptoms Treatments prior to arrival: none Related Data Previous Rx's Medication Instructions Recorded ciprofloxacin 0.3 %-dexamethasone 4 drp otic (ears) BID 7 days #7.5 06/08/23 0.1 % ear drops,suspension mL (Ciprodex) clobetasol 0.05 % shampoo 1 appl topical DAILY #118 mL 06/08/23 prednisone 50 mg tablet 50 mg PO DAILY #5 tabs 06/08/23 Allergies Allergy/AdvReac Type Severity Reaction Status Date / Time vancomycin [VANCOMYCIN] Allergy Severe Anaphylaxis Verified 01/12/23 11:58 Review of Systems Review of Systems: Yes all other systems are reviewed and are negative PMFSH Past Medical History Attestation statement: The following information was validated with the patient. Medical History History of COVID-19 History of kidney stones Localized swelling, mass and lump, neck Surgical History History of excision of mass Hx of tubal ligation Family History Family History Father Medical history unknown Mother Heart valve problem Brother Epilepsy Maternal Grandmother Breast cancer Paternal Grandmother Hypertension Social History Social History Household Members: Significant Other and Children Alcohol intake: never Patient Tobacco Use Status: Never used Tobacco Advance Directives: No Advance Directives Information Provided: Yes Sexual orientation: Straight/Heterosexual Gender identity: Female Physical Exam ED Vital Signs: Vital Signs - 24 hr 06/08/23 09:42 Temperature 98.1 F Pulse Rate 88 Respiratory Rate 16 Blood Pressure 129/86 Pulse Oximetry 99 Oxygen Delivery Method Room Air BMI result Body Mass Index 30.4 Const Other: General: Awake, alert, and oriented X3. No acute distress. HEENT: Normal inspection CVS: Normal heart rate and rhythm. Pulses normal. Respiratory: No respiratory distress Skin: Posterior scalp with multiple, large, raised, thickened and scaly plaques noted. No induration or warmth. No fluctuance or drainage Neuro: Oriented X 3. No motor deficit. No sensory deficit. Medical Decision Making Medical Decision Making MDM Narrative: This is a 32 year old female presenting to the emergency department for evaluation of scalp rash x years worsening over the last few months. Physical examination and history and physical consistent with psoriasis. Differential diagnosis include tinea capitus versus cellulitis. Given severity of psoriasis, will treat with oral steroids and topical steroidal shampoo. She was given a list of multiple dermatological offices to follow up with. Discussed findings and follow up instructions with patient. Vital signs within normal limits. Area does not appear to be infected. Patient stable for discharge. Differential Diagnosis Differential Diagnoses: The differential diagnosis associated with the presentation includes cellulitis, psoriasis, abscess, tinea capitus Discharge Plan Discharge Clinical Impression: Psoriasis Patient Disposition: Home, Self-Care Instructions: Psoriasis (ED) Additional Instructions: Your exam findings consistent with something called psoriasis. This is not contagious and not an infection. Take and use prescribed medication as directed. Please follow-up with Dermatology, call today to make an appointment. If any new or worsening symptoms occur including but not limited to fevers, worsening rash, increased pain, please return for re-evaluation. [facility] [address] [place] [address] [address] [place], [place] [phone] Prescriptions: New prednisone 50 mg tablet 50 mg PO DAILY Qty: 5 0RF clobetasol 0.05 % shampoo 1 appl topical DAILY Qty: 118 0RF Rx Instructions: Apply thin film to dry scalp once daily, leave in place for 15 minutes, then add water, lather and rinse thoroughly. Limit treatment to 4 consecutive weeks. ciprofloxacin-dexamethasone [Ciprodex] 0.3-0.1 % drops,suspension 4 drp otic (ears) BID 7 Days Qty: 7.5 0RF Referrals: Swetha Landin MD [Physician] - Sindy Solis PA [Physician Marriage And Family Teacher] - Interventions: ED Discharge Assessment Last Done: 06/08/23 12:11 Discharge Date/Time: 06/08/23 12:12
== END 2023-06-08 12:12 | disposition home or self-care (01) ==
PROVIDERS: Emergency Provider Emergency Medicine; PCP Internal Medicine
DX: L40.9 Psoriasis, unspecified (principal)
CPT/HCPCS: 99282; 99283

== ENCOUNTER 2023-06-18 13:41 | Outpatient (AMB) | payer OTHER, SELFPAY ==
[2023-06-18 13:44] VITALS: BP 140/90; PULSE 80; O2SAT 97; BMI 30.3
--- NOTE | 2023-06-18 13:44 | A.OFFPC_ITS ---
Vital Signs 06/18/23 13:44 06/18/23 14:26 Height 5 ft 1 in Weight 160 lb 2 oz BMI 30.3 BP 140/90 H 124/80 Blood Pressure Location Lt brachial Lt brachial Position Sitting Sitting Pulse 80 Pulse Source Pulse Oximeter Pulse Oximetry (%) 97 Oxygen Delivery Method Room Air Intake Visit Reasons: Annual PE Intake Note: Patient is here today for a physical. 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 Patient of Dr. Celeste. Medical history significant for psoriasis on scalp - patient will be seeing dermatology 08/2022-currently she is on clobetasol topical. In addition, patient reports right ear pain for long time now, she was seen in the emergency department and was given ear drops - reports no improvement. Reports mild pain in left ear as well. Reports she was told that she has psoriasis in her ear as well. Up-to-date with tetanus vaccine. Pap smear 10/2022 HPV positive, Pap negative. Up-to-date with tetanus vaccine. In addition, patient reports pressure on the back of her head with headaches for long time now, intermittent, reports taking Tylenol with minimal improvement. Reports intermittent sensitivity to light and feels better in dark room. No shortness of breath or chest pain. No other neurological symptoms. Requested STI screening, denies STI exposure. REPLACED BY [facility] Medical History Abdominal cramping affecting , antepartum Breech presentation of fetus palpable vaginally COVID-19 Depot contraception Encounter for supervision of normal in third trimester Group B streptococcal bacteriuria History of COVID-19 History of kidney stones Localized swelling, mass and lump, neck Post term state Surgical History History of excision of mass Hx of tubal ligation Family History Father Medical history unknown Mother Heart valve problem Brother Epilepsy Maternal Grandmother Breast cancer Paternal Grandmother Hypertension Social History Household Members: Significant Other and Children Alcohol intake: never Patient Tobacco Use Status: Never used Tobacco e-Cigarette/Vaping Use: Never Used service: No Sexual orientation: Straight/Heterosexual Gender identity: Female Female Reproductive History Menstrual Age of Menarche: 12 Questionnaire Thrive Questionnaire Date Thrive assessed: 01/12/23 LYNDA-7 AMB Questionnaire LYNDA-7 Date LYNDA - 7 assessed: 01/12/23 Source: Developed by Drs. Bryon Lo, Rosa M Ford, Rory Palomares and colleagues, with an educational chuckie from [employer]. Review of Systems Const Denies body aches, Denies chills, Denies fever(s) and Reports headache(s) Eyes Denies change in vision ENT Denies dizziness, Reports otalgia, Reports headache(s), Denies nasal discharge, Denies sinus pain and Denies sore throat Card Denies chest pain, Denies edema, Denies lightheadedness and Denies dyspnea Resp Denies cough, Denies dyspnea and Denies wheezing GI Denies abdominal pain, Denies constipation, Denies diarrhea, Denies nausea and Denies vomiting Denies dysuria Musc Denies myalgias Skin/Breast Reports rash Neuro Denies dizziness and Reports headache(s) Aller/Immun Denies wheezing Physical exam (Primary Care) Vital Signs: Last Vital Signs Pulse 80 06/18/23 13:44 BP 124/80 06/18/23 14:26 Pulse Ox 97 06/18/23 13:44 Oxygen Delivery Method Room Air 06/18/23 13:44 BMI result Body Mass Index 30.3 Tobacco/Smoking Status: Tobacco use Status Tobacco use date assessed 01/12/23 06/18/23 13:50 Patient Tobacco Use Status Never used Tobacco 06/18/23 13:50 e-Cigarette/Vaping Use Never Used 06/18/23 13:50 Thrive Assessment: Date of Thrive Assessment Date Thrive assessed 01/12/23 06/18/23 13:50 Const General: cooperative and no acute distress Orientation/consciousness: patient oriented x3 HENMT Other: Right ear canal swollen and erythematous, unable to visualize TM due to canal swelling Left ear canal normal, TM normal Head: Yes normocephalic and Yes atraumatic Face and sinus: Yes sinuses nontender Mouth: oropharynx normal and moist mucous membranes Throat: Yes posterior oropharynx normal Eyes General: appearance normal, both eyes and all related structures Pupils: Equal, round and reactive pupils present EOM: EOMs intact bilaterally Neck Other: Right AC tenderness Neck: Yes normal visual inspection, Yes full ROM and Yes no lymphadenopathy Thyroid: Thyroid normal Resp Effort & Inspection: normal respiratory effort and able to speak in complete sentences Auscultation: clear to auscultation bilaterally, no crackles, no rales, no rhonchi and no wheezes Cardio Rate: regular rate Rhythm: regular rhythm Heart sounds: S1 normal heart sound present, S2 normal heart sound present and no murmurs GI Palpation (GI): Soft to palpation, not firm, nontender, no guarding, not rigid and no hepatosplenomegaly Auscultation: normal bowel sounds General: No CVA tenderness Back/Spine/Pelvis Back: No CVA tenderness Skin Other: Posterior scalp with erythematous moderate amount areas, patient reports mild tenderness Neuro General: patient oriented x3 and CN's II-XI intact bilaterally Cranial nerves: Yes Equal, round and reactive pupils present Gait exam (Neuro): Normal gait present Motor exam (neuro): 5/5 motor strength present throughout Extrem General: Yes full ROM and No edema Assessment and Plan Assessment & Plan (1) Pressure in head: Code(s): R51.9 - Headache, unspecified Plan: Patient is to continue [id number] Tylenol 650 mg every 6 hours as needed, alternate with ibuprofen 400 mg every 8 hours as needed. Will obtain head/brain CT scan due to ongoing headaches and pressure in the back of the head (2) Right ear pain: Code(s): H92.01 - Otalgia, right ear Plan: Suspect otitis externa, also patient with right AC tenderness and pain Right ear canal swollen and erythematous, unable to visualize TM due to canal swelling Start Augmentin b.i.d. for 5 days Start hydrocortisone-acetic acid ear drops to right ear q.i.d. for 7 days Follow-up if no improvement after finishing treatment (3) Adult general medical exam: Code(s): Z00.00 - Encounter for general adult medical examination without abnormal findings Plan: Repeat in 1 year Blood work ordered (4) Routine screening for STI (sexually transmitted infection): Code(s): Z11.3 - Encounter for screening for infections with a predominantly sexual mode of transmission Plan Signs and symptoms reviewed when to notify provider go to the emergency department Orders: Orders Vitamin B12 and Folate Today Z00.00 - Encounter for general adult medical examination without abnormal findings Comprehensive Martin. Panel Fast Today Z00.00 - Encounter for general adult medical examination without abnormal findings Lipid Panel Today Z00.00 - Encounter for general adult medical examination without abnormal findings TSH reflex Free T4 Today Z00.00 - Encounter for general adult medical examination without abnormal findings Vitamin D 25-OH Total Today Z00.00 - Encounter for general adult medical examination without abnormal findings CT NG by PCR Today Z11.3 - Encounter for screening for infections with a predominantly sexual mode of transmission Hepatitis B,C Profile Today Z11.3 - Encounter for screening for infections with a predominantly sexual mode of transmission HIV Ab/Ag Today Z11.3 - Encounter for screening for infections with a predominantly sexual mode of transmission Syphilis Screen Today Z11.3 - Encounter for screening for infections with a predominantly sexual mode of transmission CT head/brain wo IV con Today R51.9 - Headache, unspecified Medications: New amoxicillin-pot clavulanate 875-125 mg 1 tab PO Q12H 5 days 10 tabs 0RF H92.01 - Otalgia, right ear hydrocortisone-acetic acid 1-2 % 4 drps otic (ears) QID 7 days 10 mL 0RF H92.01 - Otalgia, right ear Discontinued ciprofloxacin-dexamethasone 0.3-0.1 % (Ciprodex) Discontinued Reason: Doctor's Order 4 drps otic (ears) BID 7 days 7.5 mL 0RF Coding Level of Care Code Est Pt Prev Care 18-39y(03133) Diagnoses Pressure in head R51.9 Right ear pain H92.01 Adult general medical exam Z00.00 Routine screening for STI (sexually transmitted infection) Z11.3
[2023-06-18 14:26] VITALS: BP 124/80
== END 2023-06-18 14:28 | disposition home or self-care (01) ==
PROVIDERS: PCP Internal Medicine; Visit Provider Nurse Practitioner Family
DX: R51.9 Headache, unspecified (principal); H92.01 Otalgia, right ear; Z00.00 Encounter for general adult medical examination without abnormal findings; Z11.3 Encounter for screening for infections with a predominantly sexual mode of transmission
CPT/HCPCS: 99395

== ENCOUNTER 2023-06-21 10:45 | Outpatient (REF) | payer OTHER, SELFPAY ==
[2023-06-21 13:16] LABS: Alanine Aminotransferase 88 U/L (0-31); Albumin Level 4.4 g/dL (3.5-5.0); Alkaline Phosphatase 73 U/L (39-117); Anion Gap 10 (12-20); Aspartate Amino Transferase 33 U/L (5-31); Bilirubin Total 1.5 mg/dL (0.0-1.0); Blood Urea Nitrogen 12 mg/dL (9-16); Calcium 9.4 mg/dL (8.4-10.2); Carbon Dioxide 26 mmol/L (22-29); Chloride 107 mmol/L (96-108); Cholesterol 149 mg/dL (<200); Estimated Glomerular Filt Rate > 60; Glucose Fasting 83 mg/dL (60-99); HDL Cholesterol 38 mg/dL (>40); LDL Cholesterol Calculated 95 mg/dL (<100); Potassium 3.3 mmol/L (3.3-5.1); Sodium 140 mmol/L (135-145); Triglycerides 84 mg/dL (<150)
[2023-06-21 13:20] LABS: CT PCR NOT DETECTED (Not Detect.); NG PCR NOT DETECTED (Not Detect.)
[2023-06-21 13:23] LABS: TSH reflex Free T4 0.69 uIU/mL (0.32-4.0); Vitamin D 25-OH Total 22.3 ng/mL (>30)
[2023-06-21 13:34] LABS: Folate 11.1 ng/mL (> or = 4.0); Vitamin B12 242 pg/mL (200-900)
[2023-06-22 04:11] LABS: Syphilis Screen Nonreactive (Nonreactive)
[2023-06-22 04:53] LABS: HBS Num1 5.11 mIU/mL (0-7.99); HBsAGNum1 0.38 S/CO (0.00-0.99); HIV AB/AG Nonreactive (Nonreactive); HIV Num 1 0.05 S/CO (0.00-0.99); Hepatitis B Core Antibody Nonreactive (Nonreactive); Hepatitis B Surface Antigen Negative (Negative); ~HepC Num1 0.06 S/CO (0.00-0.79); ~Hepatitis B Surface Antibody NONREACTIVE (Nonreactive); ~Hepatitis C Antibody Nonreactive (Nonreactive)
== END 2023-06-21 10:46 | disposition home or self-care (01) ==
LOC: HO.LAB 10:45
PROVIDERS: PCP Internal Medicine; Visit Provider Nurse Practitioner Family
DX: Z00.00 Encounter for general adult medical examination without abnormal findings (principal); Z11.3 Encounter for screening for infections with a predominantly sexual mode of transmission; Z11.4 Encounter for screening for human immunodeficiency virus [HIV]
CPT/HCPCS: 0353U; 80053; 80061; 82306; 82607; 82746; 84443; 86704; 86706; 86780; 86803; 87340; 87389

== ENCOUNTER 2023-07-05 07:30 | Outpatient (REF) | payer OTHER, SELFPAY ==
--- NOTE | ~2023-07-05 | CT_ITS ---
EXAMINATION: CT HEAD WITHOUT CONTRAST CLINICAL INFORMATION: Headaches. COMPARISON: None. TECHNIQUE: Contiguous axial imaging was performed from the skullbase to vertex without intravenous administration of contrast. This CT examination was performed using dose optimization techniques as appropriate, variously including the following: *Automated exposure control *Adjustment of mA and/or kV according to patient size (this includes techniques or standardized protocols for targeted exams where dose is matched to indication/reason for exam; i.e. extremities or head) *Use of iterative reconstruction technique DLP: 688 mGy-cm. FINDINGS: There is no evidence of acute intracranial hemorrhage or territorial infarction. No abnormal mass effect or midline shift is seen. Cuellar to white matter differentiation is well preserved. No extra-axial fluid collections are identified. The ventricles are normal in size. There is no abnormal attenuation within the brain parenchyma. The osseous structures and soft tissues are normal. The mastoid air cells and visualized portions of the paranasal sinuses are well aerated. CT/CT head/brain wo IV con IMPRESSION: No acute intracranial pathology. Normal CT scan of the head.
== END 2023-07-05 07:31 | disposition home or self-care (01) ==
LOC: HO.CT 07:30
PROVIDERS: PCP Internal Medicine; Visit Provider Nurse Practitioner Family
DX: R51.9 Headache, unspecified (principal)
CPT/HCPCS: 70450

== ENCOUNTER 2023-07-23 09:33 | Outpatient (REF) | payer OTHER, SELFPAY ==
--- NOTE | ~2023-07-23 | US_ITS ---
EXAMINATION: US ABDOMEN LIMITED CLINICAL INFORMATION: Other specified abnormal findings of blood chemistry. COMPARISON: Ultrasound abdomen limited 12/12/2019. Ultrasound abdomen complete 06/14/2019. TECHNIQUE: Real-time imaging of the right upper quadrant abdominal viscera. FINDINGS: PANCREAS: Normal. LIVER: The liver is normal in size. The liver contour is normal. No focal hepatic lesion. There is no intrahepatic biliary duct dilatation seen. GALLBLADDER: 6 mm and 4 mm nonmobile polyps are seen. These are stable from prior. The gallbladder is physiologically distended without evidence of stones, sludge, wall thickening or pericholecystic fluid. COMMON BILE DUCT: Normal in caliber measuring 0.4 cm in diameter. RIGHT KIDNEY: Normal. No hydronephrosis. No renal calculi or focal parenchymal lesions. The kidney measures 10.8 cm in maximum dimension. FREE FLUID: None. US/US abdomen limited IMPRESSION: 1. There is generalized increase in hepatic echotexture, consistent with fatty infiltration or hepatocellular disease. Please correlate clinically. No focal hepatic mass or intrahepatic biliary dilatation is seen. 2. Stable gallbladder polyps are redemonstrated, likely cholesterol polyps.
== END 2023-07-23 09:34 | disposition home or self-care (01) ==
LOC: HO.US 09:33
PROVIDERS: PCP Internal Medicine; Visit Provider Nurse Practitioner Family
DX: R79.89 Other specified abnormal findings of blood chemistry (principal)
CPT/HCPCS: 76705

== ENCOUNTER 2023-07-29 08:50 | Outpatient (REF) | payer OTHER, SELFPAY | END 2023-07-29 08:51 | disposition home or self-care (01) | LOC: HO.LAB 08:50 | PROVIDERS: PCP Internal Medicine; Visit Provider Internal Medicine | DX: R39.9 Unspecified symptoms and signs involving the genitourinary system (principal) | CPT/HCPCS: 81001; 87086; 87088; 87186 ==

== ENCOUNTER 2023-07-29 09:52 | Outpatient (AMB) | payer OTHER, SELFPAY ==
--- NOTE | 2023-07-29 09:42 | A.OFFPC_ITS ---
Vital Signs 07/29/23 09:43 Height 5 ft 1 in Weight 160 lb 4 oz BMI 30.3 BP 102/76 Blood Pressure Location Lt brachial Position Sitting Pulse 76 Pulse Source Pulse Oximeter Pulse Oximetry (%) 99 Oxygen Delivery Method Room Air Intake Visit Reasons: right ear pain, UTI symptoms. 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 Patient of Dr. Celeste presents today for same-day visit for right ear pain and UTI symptoms. Patient both ear pain bilateral right greater than left. Patient reports she has a history of psoriasis for which she gets in the ear. Patient previously sent hydrocortisone drops. With minimal relief. Patient states she has an appointment in August to establish care with Dermatology. Bilateral ear exam completed TMs pearly no signs of otitis media or suzanne externa. Right ear canal noted to have dry flaky skin likely her psoriasis patient encouraged can continue to use hydrocortisone drops and discontinue the use of Q-tips. Patient also reports dysuria, frequency and urgency x1 week. States she went to the lab this morning to provide urine sample. UA still pending. Given patient's symptomatic will cover with Macrobid will urine pending. Patient agreeable with plan of care. [facility] Medical History (Updated 07/29/23 @ 10:13 by CECILIA Tomlinson) Psoriasis Localized swelling, mass and lump, neck History of COVID-19 History of kidney stones Depot contraception state Post term Encounter for supervision of normal in third trimester Breech presentation of fetus palpable vaginally Abdominal cramping affecting , antepartum Group B streptococcal bacteriuria COVID-19 Surgical History Hx of tubal ligation History of excision of mass Family History Father Medical history unknown Mother Heart valve problem Brother Epilepsy Maternal Grandmother Breast cancer Paternal Grandmother Hypertension Social History Household Members: Significant Other and Children Housing: Apartment Alcohol intake: never Patient Tobacco Use Status: Never used Tobacco e-Cigarette/Vaping Use: Never Used service: No Sexual orientation: Straight/Heterosexual Gender identity: Female Cognitive needs: No Hearing needs: No Vision needs: No Female Reproductive History Menstrual Age of Menarche: 12 Questionnaire PHQ-9 Over the last 2 weeks, how often have you been bothered by any of the following problems? 1. Little interest or pleasure in doing things: not at all 2. Feeling down, depressed, or hopeless: not at all 3. Trouble falling or staying asleep, or sleeping too much: not at all 4. Feeling tired or having little energy: not at all 5. Poor appetite or overeating: not at all 6. Feeling bad about yourself - or that you are a failure or have let yourself or your family down: not at all 7. Trouble concentrating on things, such as reading the newspaper or watching television: not at all 8. Moving or speaking so slowly that other people could have noticed. Or the opposite - being so fidgety or restless that you have been moving around a lot more than usual: not at all 9. Thoughts that you would be better off or of hurting yourself in some way: not at all Total score: 0 Source: Developed by Drs. Bryon Lo, Rosa M Ford, Rory Palomares and colleagues, with an educational chuckie from [employer]. Thrive Questionnaire Date Thrive assessed: 07/29/23 I am a: Patient What is your living situation today?: I have a steady place to live Within the past 12 months, did the food you bought not last and you didn't have the money to get more?: Never true Within the past 12 months, did you worry whether your food would run out before you got money to buy more?: Never true Do you have trouble paying for medicines?: No Do you have trouble getting transportation to medical appointments?: No Do you have trouble paying your heating and electricity bill?: No Do you have trouble taking care of your child, family member or friend?: No Do you have trouble with day-to-day activities such as bathing, preparing meals, shopping, managing finances, etc.?: No Are you currently unemployed and looking for a job?: No Are you interested in more education?: No Please select the resources that you would like help with: None Currently or been in a relationship where the following occur: no concerns reported AUDIT C Alcohol Use Questionnaire (AUDIT-C) 1. How often do you have a drink containing alcohol?: Never Total Score: 0 LYNDA-7 AMB Questionnaire LYNDA-7 Date LYNDA - 7 assessed: 07/29/23 Feeling nervous, anxious, or on edge: 0 = Not at all Not being able to stop or control worryin = Not at all Worrying too much about different things: 0 = Not at all Trouble relaxin = Not at all Being so restless that it is hard to sit still: 0 = Not at all Becoming easily annoyed or irritable: 0 = Not at all Feeling afraid as if something awful might happen: 0 = Not at all Total LYNDA-7 score (0-4 normal; 5-9 mild; 10-14 moderate; 15-21 severe): 0 Source: Developed by Drs. Bryon Lo, Rosa M Ford, Rory Palomares and colleagues, with an educational chuckie from [employer]. Review of Systems Const Denies chills, Denies fatigue, Denies fever(s) and Denies poor appetite Eyes Denies no additional complaints ENT Reports Normal hearing present and Reports other (right ear pain ) Card Denies chest pain, Denies syncope, Denies rapid heart rate and Denies dyspnea Resp Denies cough and Denies dyspnea GI Denies change in stool character, Denies constipation, Denies diarrhea, Denies nausea and Denies vomiting Denies urinary frequency, Reports dysuria and Reports urinary urgency Neuro Reports Normal hearing present, Denies confusion and Denies syncope Psych Denies confusion Endo Denies fatigue Physical exam (Primary Care) Vital Signs: Last Vital Signs Pulse 76 07/29/23 09:43 BP 102/76 07/29/23 09:43 Pulse Ox 99 07/29/23 09:43 Oxygen Delivery Method Room Air 07/29/23 09:43 BMI result Body Mass Index 30.3 Tobacco/Smoking Status: Tobacco use Status Tobacco use date assessed 07/29/23 07/29/23 09:47 Patient Tobacco Use Status Never used Tobacco 07/29/23 09:47 e-Cigarette/Vaping Use Never Used 07/29/23 09:47 PHQ-9: PHQ-9 Score PHQ-9: Total score 0 07/29/23 09:55 Thrive Assessment: Date of Thrive Assessment Date Thrive assessed 07/29/23 07/29/23 09:47 Currently or been in a relationship where the following occur: no concerns reported Const General: No confusion Orientation/consciousness: No confusion HENMT Head: Yes normocephalic and Yes atraumatic Ears: external ears normal, TM's normal bilaterally and other (dry flaking skin noted in right ear canal ) Eyes Conjunctivae: conjunctivae normal Chest Chest palpation & inspection: normal inspection of the chest Resp Effort & Inspection: normal respiratory effort Auscultation: clear to auscultation bilaterally, no crackles, no rhonchi and no wheezes Cardio Rate: regular rate Rhythm: regular rhythm Heart sounds: S1 normal heart sound present and S2 normal heart sound present GI Inspection: Yes normal to inspection General: Yes no CVA tenderness Back/Spine/Pelvis Back: no CVA tenderness Neuro General: No confusion Cranial nerves: Yes Normal hearing present Extrem General: No edema Assessment and Plan Assessment & Plan (1) UTI symptoms: Code(s): R39.9 - Unspecified symptoms and signs involving the genitourinary system Plan: UA pending will cover with Macrobid given patient is experiencing dysuria, frequency and pelvic pressure. (2) Psoriasis: Code(s): L40.9 - Psoriasis, unspecified Plan: Continue to establish care for psoriasis with Dermatology. Can continue to use hydrocortisone ear drops due to dry flaking skin noted and right ear canal. Medications: New nitrofurantoin monohyd/m-cryst 100 mg (Macrobid) must administer with a meal/food 100 mg PO Q12H 5 days 10 caps 0RF Coding Level of Care Code Est Pt Level 3 (83815) Diagnoses UTI symptoms R39.9 Psoriasis L40.9
[2023-07-29 09:43] VITALS: BP 102/76; PULSE 76; O2SAT 99; BMI 30.3
== END 2023-07-29 10:08 | disposition home or self-care (01) ==
PROVIDERS: PCP Internal Medicine; Visit Provider Nurse Practitioner Family
DX: R39.9 Unspecified symptoms and signs involving the genitourinary system (principal); L40.9 Psoriasis, unspecified
CPT/HCPCS: 99213

== ENCOUNTER 2023-10-13 11:51 | Outpatient (AMB) | payer OTHER, SELFPAY ==
--- NOTE | 2023-10-13 12:09 | A.OFFVIS_ITS ---
Intake Vital Signs 3 10/13/23 12:25 Height 5 ft 1 in Weight 163 lb 9.328 oz BMI 30.9 BP 117/76 Blood Pressure Location Lt brachial Position Sitting Pulse 77 Intake Visit Reasons: Cholesterolosis of gallbladder Intake Note: Patient presents to in office visit today as a new patient for cholesterolosis of gallbladder. CC: Patient states there is a lot going on with me lately , she states labs and US showed cholesterolosis of gallbladder. She states I know that I'm also having problems with the liver, the told me fatty liver . Patient reports a lot of nausea, and burning epigastric sensation after eating sometimes. Denies V/D blood in stool, or constipation. Allergies vancomycin [VANCOMYCIN] Allergy (Severe, Verified 10/13/23 12:30) Anaphylaxis HPI Cholesterolosis of gallbladder 2 HPI0 Details 33-year-old female here for initial eval uation of a gallbladder polyp. She is referred by Karla Barrera of [facility] [place] primary care. PMX Psoriasis Elevated LFTs History of iron deficiency anemia History of hyperemesis gravidarum History of cervical cancer Depression GERD History of chlamydia Headache Nephrolithiasis * SURGICAL HISTORY Tubal ligation Mass excision from right thigh * ALLERGIES Vancomycin-anaphylaxis * [facility] LABS: Laboratory Tests 06/21/23 11:03 Total Bilirubin 1.5 H AST 33 H ALT 88 H Alkaline Phosphata se 73 TSH 0.69 Hep Bs Antigen Negative Hep Bs Antibody NONREACTIVE Hep B Core Total A b Nonreactive Hepatitis C Ab (EI A) Nonreactive HIV 1&2 Ab/P24 Ag 4thGn Nonreactive ULTRASOUND OF THE ABDOMEN 07/26/23 FINDINGS: PANCREAS: Normal. LIVER: The liver is normal in size. The liver contour is normal. No focal hepatic lesion. There is no intrahepatic biliary duct dilatation seen. GALLBLADDER: 6 mm and 4 mm nonmobile polyps are seen. These are stable from prior. The gallbladder is physiologically distended without evidence of stones, sludge, wall thickening or pericholecystic fluid. COMMON BILE DUCT: Normal in caliber measuring 0.4 cm in diameter. RIGHT KIDNEY: Normal. No hydronephrosis. No renal calculi or focal parenchymal lesions. The kidney measures 10.8 cm in maximum dimension. FREE FLUID: None. US/US abdomen limited IMPRESSION: 1. There is generalized increase in hepa tic echotexture, consistent with fatty infiltration or hepatocellular disease. Please correlate clinically. No focal hepatic mass or intrahepatic biliary dilatation is seen. 2. Stable gallbladder polyps are redemon strated, likely cholesterol polyps. TODAY'S VISIT She does not know why she is here. She states she has a lot of nausea and HB for about a year. This has worsened recently. The only new condition is a skin condition and the only new medicines are topical. She has nausea with fatty foods and when her stomach is empty. No vomiting. She has acid brash that smells bad. She had diarrhea for about a month a year ago, and she was told to avoid lactose and coffee and this improved. Her BM's are daily and formed. She has a lot of bloating and gas. She has been gaining weight recently over the past 2 years, from 137 to 160 lbs. Her mother suffers HB and there is a strong family history in maternal aunts of cholecystectomy. She is not taking any acid reducing medication. No abd pain. GERD is worse at night. Mother has liver problems but also hx of Hep C. Will do liver work up, HP breath test, trial of famotidine and give diet from [employer] [facility]. ROV 8 weeks. [facility] Medical History Psoriasis Localized swelling, mass and lump, neck History of COVID-19 History of kidney stones Depot contraception state Post term Encounter for supervision of normal in third trimester Breech presentation of fetus palpable vaginally Abdominal cramping affecting , antepartum Group B streptococcal bacteriuria COVID-19 Surgical History Hx of tubal ligation History of excision of mass Family History Father Medical history unknown Mother Heart valve problem Brother Epilepsy Maternal Grandmother Breast cancer Paternal Grandmother Hypertension Social History Household Members: Significant Other and Children Housing: Apartment Alcohol intake: never Patient Tobacco Use Status: Never used Tobacco e-Cigarette/Vaping Use: Never Used service: No Sexual orientation: Straight/Heterosexual Gender identity: Female Cognitive needs: No Hearing needs: No Vision needs: No Female Reproductive History Menstrual Age of Menarche: 12 Review of Systems Const Denies fatigue, Denies fever(s), Denies night sweats, Denies poor appetite, Reports weight gain and Denies weight loss ENT Reports Normal hearing present, Denies dental pain, Denies dysphagia, Denies hearing loss, Denies mouth pain, Denies odynophagia, Denies throat swelling, Denies tongue swelling and Reports other (Dentition adequate) Card Reports no additional complaints Resp Reports no additional complaints GI Denies abdominal pain, Denies melena, Reports bloating, Denies hematochezia, Denies constipation, Denies GI cramping, Denies dysphagia, Reports excessive flatus, Denies early satiety, Reports heartburn, Denies diarrhea, Reports nausea, Denies odynophagia, Denies vomiting and Denies hematemesis Skin/Breast Denies pruritus, Denies lesions, Denies rash and Denies jaundice Neuro Reports Normal hearing present and Denies Abnormal speech present Endo Denies fatigue Aller/Immun Denies throat swelling and Denies tongue swelling Physical Exam Vital Signs: Last Vital Signs Pulse 77 10/13/23 12:25 BP 117/76 10/13/23 12:25 BMI result Body Mass Index 30.9 Const General: cooperative, no acute distress, well developed and well groomed Nutritional Appearance: well nourished and obese centrally obese Orientation/consciousness: oriented to person, oriented to place and oriented to time Limitations: No language barrier HEENT Head: Yes normocephalic and Yes atraumatic Eyes General: appearance normal, both eyes and all related structures Pupils: Equal, round and reactive pupils present Neck Neck: Yes normal visual inspection and Yes no lymphadenopathy Thyroid: Thyroid normal Resp Effort & Inspection: normal respiratory effort and able to speak in complete sentences Auscultation: clear to auscultation bilaterally Cardio Rate: regular rate Rhythm: regular rhythm Heart sounds: Normal, physiologic split S2 sound present Peripheral pulses: radial pulses present and posterior tibial pulses present GI Inspection: No distended, No Abdominal panniculus present, Yes obesity and Yes striae Palpation (GI): Soft to palpation, nontender, no guarding, not rigid and No hepatosplenomegaly present Percussion: Yes normal to percussion Auscultation: normal bowel sounds Rectal Exam - Female: deferred Abdomen image: 2 1. lap scar Skin General skin exam: no rashes or lesions noted, turgor normal, skin not dry, no jaundice, No spider nevi and no striae Rashes: no rashes Nails: normal Neuro General: oriented to person, oriented to place and oriented to time Cranial nerves: Yes Equal, round and reactive pupils present and Yes Normal hearing present Speech: No Abnormal speech present Extrem General: Yes normal to inspection, No clubbing, No cyanosis and No edema Psych Appearance: grossly normal and well kempt Mental Status: mental status grossly normal Speech and movement: Normal speech and movement present Affect: normal affect Attitude: cooperative Thought process: Normal thought process present and not confabulating Thought content: Normal thought content present Insight: Limited insight present (Psych) Judgement: Limited judgement present (Psych) Results Reviewed Results Reviewed: Laboratory Tests 06/21/23 11:03 Total Bilirubin 1.5 H AST 33 H ALT 88 H Alkaline Phosphatase 73 TSH 0.69 Hep Bs Antigen Negative Hep Bs Antibody NONREACTIVE Hep B Core Total Ab Nonreactive Hepatitis C Ab (EIA) Nonreactive HIV 1&2 Ab/P24 Ag 4thGn Nonreactive ULTRASOUND OF THE ABDOMEN 07/26/23 FINDINGS: PANCREAS: Normal. LIVER: The liver is normal in size. The liver contour is normal. No focal hepatic lesion. There is no intrahepatic biliary duct dilatation seen. GALLBLADDER: 6 mm and 4 mm nonmobile polyps are seen. These are stable from prior. The gallbladder is physiologically distended without evidence of stones, sludge, wall thickening or pericholecystic fluid. COMMON BILE DUCT: Normal in caliber measuring 0.4 cm in diameter. RIGHT KIDNEY: Normal. No hydronephrosis. No renal calculi or focal parenchymal lesions. The kidney measures 10.8 cm in maximum dimension. FREE FLUID: None. US/US abdomen limited IMPRESSION: 1. There is generalized increase in hepatic echotexture, consistent with fatty infiltration or hepatocellular disease. Please correlate clinically. No focal hepatic mass or intrahepatic biliary dilatation is seen. 2. Stable gallbladder polyps are redemonstrated, likely cholesterol polyps. Assessment & Plan Assessment & Plan (1) Heartburn: Code(s): R12 - Heartburn (2) Transaminitis: Code(s): R74.01 - Elevation of levels of liver transaminase levels (3) Elevated bilirubin: Code(s): R17 - Unspecified jaundice Plan She does not know why she is here. She states she has a lot of nausea and HB for about a year. This has worsened recently. The only new condition is a skin condition and the only new medicines are topical. She has nausea with fatty foods and when her stomach is empty. No vomiting. She has acid brash that smells bad. She had diarrhea for about a month a year ago, and she was told to avoid lactose and coffee and this improved. Her BM's are daily and formed. She has a lot of bloating and gas. She has been gaining weight recently over the past 2 years, from 137 to 160 lbs. Her mother suffers HB and there is a strong family history in maternal aunts of cholecystectomy. She is not taking any acid reducing medication. No abd pain. GERD is worse at night. Mother has liver problems but also hx of Hep C. Will do liver work up, HP breath test, trial of famotidine and give diet from [employer]. RO 8 weeks. Orders: Orders 2 Comprehensive Met. Panel 10/15/23 R12 - Heartburn, R74.01 - Elevation of levels of liver transaminase levels, R17 - Unspecified jaundice Mitochondrial Antibody 10/15/23 R12 - Heartburn, R74.01 - Elevation of levels of liver transaminase levels, R17 - Unspecified jaundice Transglutaminase IgA 10/15/23 R12 - Heartburn, R74.01 - Elevation of levels of liver transaminase levels, R17 - Unspecified jaundice Transglutaminase Ab IgG 10/15/23 R12 - Heartburn, R74.01 - Elevation of levels of liver transaminase levels, R17 - Unspecified jaundice ADRIANNE Reflex Titer and Pattern 10/15/23 R12 - Heartburn, R74.01 - Elevation of levels of liver transaminase levels, R17 - Unspecified jaundice Alpha Fetoprotein 10/15/23 R12 - Heartburn, R74.01 - Elevation of levels of liver transaminase levels, R17 - Unspecified jaundice Complete Blood Count Auto Diff 10/15/23 R12 - Heartburn, R74.01 - Elevation of levels of liver transaminase levels, R17 - Unspecified jaundice Smooth Muscle Antibody 10/15/23 R12 - Heartburn, R74.01 - Elevation of levels of liver transaminase levels, R17 - Unspecified jaundice Ferritin 10/15/23 R12 - Heartburn, R74.01 - Elevation of levels of liver transaminase levels, R17 - Unspecified jaundice Gamma Glutamyl Transpeptidase 10/15/23 R12 - Heartburn, R74.01 - Elevation of levels of liver transaminase levels, R17 - Unspecified jaundice Bilirubin Direct 10/15/23 R17 - Unspecified jaundice H Pylori Breath Test 10/13/23 R12 - Heartburn Medications: New 2 famotidine (Pepcid) 40 mg PO BEDTIME 30 tabs 3RF R12 - Heartburn Coding Level of Care Code New Pt Level 3 (41281) Diagnoses Heartburn R12 Transaminitis R74.01 Elevated bilirubin R17
[2023-10-13 12:25] VITALS: BP 117/76; PULSE 77; BMI 30.9
== END 2023-10-13 12:58 | disposition home or self-care (01) ==
PROVIDERS: PCP Internal Medicine; Visit Provider Nurse Practitioner
DX: R12 Heartburn (principal); R74.01 Elevation of levels of liver transaminase levels; R17 Unspecified jaundice
CPT/HCPCS: 99203

== ENCOUNTER → 2023-10-13 11:51 | Outpatient (BNVA) | payer OTHER, SELFPAY | PROVIDERS: PCP Internal Medicine; Visit Provider Nurse Practitioner | DX: R12 Heartburn (principal); R74.01 Elevation of levels of liver transaminase levels; R17 Unspecified jaundice | CPT/HCPCS: 99202 ==

== ENCOUNTER 2023-10-15 13:40 | Outpatient (REF) | payer OTHER, SELFPAY ==
[2023-10-15 13:51] LABS: MANUAL DIFF FLAG NO
[2023-10-15 14:22] LABS: Basophils Percent Auto 0.5 % (0-2); Eosinophils Absolute Auto 0.1 X10*3/uL (0.0-0.4); Eosinophils Percent Auto 1.1 % (0-4); Hematocrit 38.5 % (37.0-47.0); Hemoglobin 12.6 g/dl (12.0-16.0); Imm Gran Abs Auto 0.02 X10*3/uL (0.00-0.03); Imm Gran Pct Auto 0.2 % (0.0-0.4); Lymphocytes Absolute Auto 1.1 X10*3/uL (1.2-4.9); Lymphocytes Percent Auto 13.1 % (20-40); Mean Corpuscular HGB Conc 32.7 g/dl (31.0-35.0); Mean Corpuscular Hemoglobin 26.4 pg (27.0-33.0); Mean Corpuscular Volume 80.5 fL (80.0-98.0); Mean Platelet Volume 10.4 fL (9.4-12.3); Monocytes Absolute Auto 0.6 X10*3/uL (0.1-1.2); Monocytes Percent Auto 6.7 % (2-11); Neutrophils Absolute Auto 6.5 x10*3/uL (2.0-8.3); Neutrophils Percent Auto 78.4 % (45-73); Platelet Count 256 X10*3/uL (160-400); Red Blood Count 4.78 X10*6/uL (4.20-5.50); Red Cell Distribution Width 13.2 % (11.0-16.0); White Blood Count 8.3 X10*3/uL (4.8-10.8)
[2023-10-15 14:54] LABS: Alanine Aminotransferase 21 U/L (0-31); Albumin Level 4.4 g/dL (3.5-5.0); Alkaline Phosphatase 84 U/L (39-117); Anion Gap 12 (12-20); Aspartate Amino Transferase 25 U/L (5-31); Bilirubin Direct 0.5 mg/dL (0.0-0.5); Bilirubin Total 1.2 mg/dL (0.0-1.0); Blood Urea Nitrogen 11 mg/dL (9-16); Calcium 9.4 mg/dL (8.4-10.2); Carbon Dioxide 26 mmol/L (22-29); Chloride 105 mmol/L (96-108); Estimated Glomerular Filt Rate > 60; Glucose Random 86 mg/dL (60-115); Potassium 3.5 mmol/L (3.3-5.1); Sodium 139 mmol/L (135-145); Total Protein 8.3 g/dL (6.5-8.0)
[2023-10-15 15:14] LABS: Ferritin 21 ng/mL (10-122)
[2023-10-15 15:38] LABS: Gamma Glutamyl Transpeptidase 20 U/L (7-33)
[2023-10-19 15:22] LABS: Anti Nuclear Antibody Screen NEGATIVE (NEGATIVE)
[2023-10-19 16:49] LABS: Smooth Muscle Antibody <20 U (<20)
[2023-10-20 12:23] LABS: Alpha Fetoprotein 1.3 ng/mL
[2023-10-21 14:04] LABS: Transglutaminase Ab IgG <1.0 U/mL; Transglutaminase IgA <1.0 U/mL
[2023-10-21 14:38] LABS: Mitochondrial Antibodies NEGATIVE (NEGATIVE)
== END 2023-10-15 13:41 | disposition home or self-care (01) ==
LOC: HO.LAB 13:40
PROVIDERS: PCP Internal Medicine; Visit Provider Nurse Practitioner
DX: R12 Heartburn (principal); R74.01 Elevation of levels of liver transaminase levels; R17 Unspecified jaundice
CPT/HCPCS: 36415; 80053; 82105; 82248; 82728; 82977; 85025; 86015; 86038; 86364; 86381

== ENCOUNTER 2023-12-16 10:17 | Outpatient (REF) | payer OTHER, SELFPAY ==
--- NOTE | ~2023-12-16 | XR_ITS ---
EXAMINATION: XR HAND, RIGHT CLINICAL INFORMATION: Pain in right hand, patient states she fell about 3 days ago and has trouble gripping with her right hand. COMPARISON: None available. TECHNIQUE: PA, lateral, and oblique views of the right hand. FINDINGS: Bone mineralization is normal. Alignment is preserved. No displaced fracture appreciated. XR/XR hand RT 2V IMPRESSION: No displaced fracture. Recommend follow-up imaging in 10-14 days if fracture is suspected.
[2023-12-16 11:18] LABS: MANUAL DIFF FLAG NO
[2023-12-16 11:39] LABS: Basophils Absolute Auto 0.1 X10*3/uL (0.0-0.2); Basophils Percent Auto 0.8 % (0-2); Eosinophils Absolute Auto 0.2 X10*3/uL (0.0-0.4); Eosinophils Percent Auto 2.8 % (0-4); Hemoglobin 12.4 g/dl (12.0-16.0); Imm Gran Abs Auto 0.01 X10*3/uL (0.00-0.03); Imm Gran Pct Auto 0.2 % (0.0-0.4); Lymphocytes Absolute Auto 1.5 X10*3/uL (1.2-4.9); Lymphocytes Percent Auto 23.8 % (20-40); Mean Corpuscular HGB Conc 31.8 g/dl (31.0-35.0); Mean Corpuscular Hemoglobin 26.6 pg (27.0-33.0); Mean Corpuscular Volume 83.5 fL (80.0-98.0); Monocytes Absolute Auto 0.3 X10*3/uL (0.1-1.2); Monocytes Percent Auto 5.4 % (2-11); Neutrophils Absolute Auto 4.1 x10*3/uL (2.0-8.3); Platelet Count 254 X10*3/uL (160-400); Red Blood Count 4.67 X10*6/uL (4.20-5.50); Red Cell Distribution Width 13.6 % (11.0-16.0); White Blood Count 6.1 X10*3/uL (4.8-10.8)
[2023-12-16 12:15] LABS: Alanine Aminotransferase 14 U/L (0-31); Albumin Level 4.1 g/dL (3.5-5.0); Alkaline Phosphatase 69 U/L (39-117); Anion Gap 11 (12-20); Aspartate Amino Transferase 17 U/L (5-31); Bilirubin Total 0.9 mg/dL (0.0-1.0); Blood Urea Nitrogen 9 mg/dL (9-16); Calcium 9.3 mg/dL (8.4-10.2); Carbon Dioxide 27 mmol/L (22-29); Chloride 108 mmol/L (96-108); Estimated Glomerular Filt Rate > 60; Glucose Fasting 90 mg/dL (60-99); Potassium 4.1 mmol/L (3.3-5.1); Sodium 142 mmol/L (135-145); Total Protein 7.5 g/dL (6.5-8.0)
== END 2023-12-16 10:18 | disposition home or self-care (01) ==
LOC: HO.XRAY 10:17
PROVIDERS: PCP Internal Medicine; Visit Provider Internal Medicine
DX: M79.641 Pain in right hand (principal); R42 Dizziness and giddiness; D64.9 Anemia, unspecified
CPT/HCPCS: 36415; 73120; 80053; 85025

== ENCOUNTER 2024-01-06 10:02 | Outpatient (AMB) | payer OTHER, SELFPAY ==
--- NOTE | 2024-01-06 10:04 | MHC.OFFVIS ---
Intake Vital Signs 01/06/24 10:21 Height 5 ft 1 in Weight 148 lb 2.41 oz BMI 28.0 BP 142/69 H Blood Pressure Location Lt brachial Position Sitting Pulse 88 Intake Visit Reasons: 8 week follow up Intake Note: Solomon returns to in office follow up of labs. CC: Patient reports having a lot of dizziness and she states that the order my right kidney was hurting . She also c/o nausea and constipation. Denies other GI symptoms. User Experience Manager Required: No Accompanied by: Self / Same As Patient Allergies vancomycin [VANCOMYCIN] Allergy (Severe, Verified 01/06/24 10:29) Anaphylaxis HPI 8 week follow up HPI Details Assessment & Plan (1) Heartburn: Code(s): R12 - Heartburn (2) Transaminitis: Code(s): R74.01 - Elevation of levels of liver transaminase levels (3) Elevated bilirubin: Code(s): R17 - Unspecified jaundice Plan She does not know why she is here. She states she has a lot of nausea and HB for about a year. This has worsened recently. The only new condition is a skin condition and the only new medicines are topical. She has nausea with fatty foods and when her stomach is empty. No vomiting. She has acid brash that smells bad. She had diarrhea for about a month a year ago, and she was told to avoid lactose and coffee and this improved. Her BM's are daily and formed. She has a lot of bloating and gas. She has been gaining weight recently over the past 2 years, from 137 to 160 lbs. Her mother suffers HB and there is a strong family history in maternal aunts of cholecystectomy. She is not taking any acid reducing medication. No abd pain. GERD is worse at night. Mother has liver problems but also hx of Hep C. 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 ROV 8 weeks. Orders: Orders Comprehensive Met. Panel 10/15/23 R12 - Heartburn, R 74.01 - Elevation of levels of liver transaminase leve ls, R17 - Unspecif ied jaundice Mitochondrial Anti body 10/15/23 R12 - Heartburn, R 74.01 - Elevation of levels of liver transaminase leve ls, R17 - Unspecif ied jaundice Transglutaminase I gA 10/15/23 R12 - Heartburn, R 74.01 - Elevation of levels of liver transaminase leve ls, R17 - Unspecif ied jaundice Transglutaminase A b IgG 10/15/23 R12 - Heartburn, R 74.01 - Elevation of levels of liver transaminase leve ls, R17 - Unspecif ied jaundice ADRIANNE Reflex Titer a nd Pattern 10/15/23 R12 - Heartburn, R 74.01 - Elevation of levels of liver transaminase leve ls, R17 - Unspecif ied jaundice Alpha Fetoprotein 10/15/23 R12 - Heartburn, R 74.01 - Elevation of levels of liver transaminase leve ls, R17 - Unspecif ied jaundice Complete Blood Cou nt Auto Diff 10/15/23 R12 - Heartburn, R 74.01 - Elevation of levels of liver transaminase leve ls, R17 - Unspecif ied jaundice Smooth Muscle Anti body 10/15/23 R12 - Heartburn, R 74.01 - Elevation of levels of liver transaminase leve ls, R17 - Unspecif ied jaundice Ferritin 10/15/23 R12 - Heartburn, R 74.01 - Elevation of levels of liver transaminase leve ls, R17 - Unspecif ied jaundice Gamma Glutamyl Tra nspeptidase 10/15/23 R12 - Heartburn, R 74.01 - Elevation of levels of liver transaminase leve ls, R17 - Unspecif ied jaundice Bilirubin Direct 10/15/23 R17 - Unspecified jaundice H Pylori Breath Te st 10/13/23 R12 - Heartburn Medications: New famotidine (Pepcid ) 40 mg PO BEDTIME 3 0 tabs 3RF R12 - Heartburn LALaboratory Tests 06/21/23 10/15/23 10/15/23 11:03 13:42 13:42 WBC Hgb Hct Plt Count Estimated GFR Total Bilirubin 1.2 H Direct Bilirubin 0.5 GGT 20 AST 25 ALT 21 Alkaline Phosphata se 84 Alpha Fetoprotein ADRIANNE Screen Anti-Mitochondrial Ab Anti-Smooth Muscle Ab Tiss Transglutamin IgG Tiss Transglutamin IgA Hep Bs Antigen Negative Hep Bs Antibody NONREACTIVE Hep B Core Total A b Nonreactive Hepatitis C Ab (EI A) Nonreactive HIV 1&2 Ab/P24 Ag 4thGn Nonreactive 10/15/23 12/16/23 12/16/23 13:42 11:17 11:17 WBC 6.1 Hgb 12.4 Hct 39.0 Plt Count 254 Estimated GFR > 60 Total Bilirubin 0.9 Direct Bilirubin GGT AST 17 ALT 14 Alkaline Phosphata se Alpha Fetoprotein 1.3 ADRIANNE Screen NEGATIVE Anti-Mitochondrial Ab NEGATIVE Anti-Smooth Muscle Ab <20 Tiss Transglutamin IgG <1.0 Tiss Transglutamin IgA <1.0 Hep Bs Antigen Hep Bs Antibody Hep B Core Total A b Hepatitis C Ab (EI A) HIV 1&2 Ab/P24 Ag 4thGn 12/16/23 11:17 WBC Hgb Hct Plt Count Estimated GFR Total Bilirubin Direct Bilirubin GGT AST ALT Alkaline Phosphata se 69 Alpha Fetoprotein ADRIANNE Screen Anti-Mitochondrial Ab Anti-Smooth Muscle Ab Tiss Transglutamin IgG Tiss Transglutamin IgA Hep Bs Antigen Hep Bs Antibody Hep B Core Total A b Hepatitis C Ab (EI A) HIV 1&2 Ab/P24 Ag 4thGn US FROM 06/2023 SHOWED ONLY STABLE GB WALL POLYPS. TODAY'S VISIT She is feeling very much better with the famotidine and this seems to have resolved all of her symptoms. Obviously we will continue this medication. It appears that we failed to get the H pylori breath test so will try to get a stool sample since she is already on acid reduction therapy. We reviewed the liver functions and there is no reason to suspect that she has anything other than Gilbert's syndrome syndrome. There does not appear to be any elevation ever mitochondrial antibodies or any biliary bile problems that would warrant further investigation. Of course this continues to be followed and make sure that there is no concerning changes. Return office visit in 6 months [facility] Medical History Psoriasis Localized swelling, mass and lump, neck History of COVID-19 History of kidney stones Depot contraception state Post term Encounter for supervision of normal in third trimester Breech presentation of fetus palpable vaginally Abdominal cramping affecting , antepartum Group B streptococcal bacteriuria COVID-19 Surgical History Hx of tubal ligation History of excision of mass Family History Father Medical history unknown Mother Heart valve problem Brother Epilepsy Maternal Grandmother Breast cancer Paternal Grandmother Hypertension Social History Household Members: Significant Other and Children Housing: Apartment Alcohol intake: never Patient Tobacco Use Status: Never used Tobacco e-Cigarette/Vaping Use: Never Used service: No Sexual orientation: Straight/Heterosexual Gender identity: Female Cognitive needs: No Hearing needs: No Vision needs: No Female Reproductive History Menstrual Age of Menarche: 12 Review of Systems Const Denies fatigue, Denies fever(s), Denies night sweats, Denies poor appetite and Denies weight loss ENT Reports Normal hearing present, Denies dental pain, Denies dysphagia, Denies hearing loss, Denies mouth pain, Denies odynophagia, Denies throat swelling, Denies tongue swelling and Reports other (Dentition adequate) Card Reports no additional complaints Resp Reports no additional complaints GI Details: Denies abdominal pain, Denies melena, Denies bloating, Denies hematochezia, Denies constipation, Denies GI cramping, Denies dysphagia, Denies excessive flatus, Denies early satiety, Reports dyspepsia, Reports heartburn, Denies diarrhea, Denies nausea, Denies odynophagia, Denies vomiting and Denies hematemesis Skin/Breast Denies pruritus, Denies lesions, Denies rash and Denies jaundice Neuro Reports Normal hearing present and Denies Abnormal speech present Endo Denies fatigue Aller/Immun Denies throat swelling and Denies tongue swelling Physical Exam Vital Signs: Last Vital Signs Pulse 88 01/06/24 10:21 BP 142/69 H 01/06/24 10:21 BMI result Body Mass Index 28.0 Const General: cooperative, no acute distress, well developed and well groomed Nutritional Appearance: average body habitus and well nourished Orientation/consciousness: oriented to person, oriented to place and oriented to time Limitations: No language barrier HEENT Head: Yes normocephalic and Yes atraumatic Eyes General: appearance normal, both eyes and all related structures Pupils: Equal, round and reactive pupils present Neck Neck: Yes normal visual inspection and Yes no lymphadenopathy Thyroid: Thyroid normal Resp Effort & Inspection: normal respiratory effort and able to speak in complete sentences Auscultation: clear to auscultation bilaterally Cardio Rate: regular rate Rhythm: regular rhythm Heart sounds: Normal, physiologic split S2 sound present Peripheral pulses: radial pulses present and posterior tibial pulses present GI Inspection: No distended and No Abdominal panniculus present Palpation (GI): Soft to palpation, nontender, no guarding, not rigid and No hepatosplenomegaly present Percussion: Yes normal to percussion Auscultation: normal bowel sounds Rectal Exam - Female: deferred Skin General skin exam: no rashes or lesions noted, turgor normal, skin not dry, no jaundice, No spider nevi and no striae Rashes: no rashes Nails: normal Neuro General: oriented to person, oriented to place and oriented to time Cranial nerves: Yes Equal, round and reactive pupils present and Yes Normal hearing present Speech: No Abnormal speech present Extrem General: Yes normal to inspection, No clubbing, No cyanosis and No edema Psych Appearance: grossly normal and well kempt Mental Status: mental status grossly normal Speech and movement: Normal speech and movement present Affect: normal affect Attitude: cooperative Thought process: Normal thought process present and not confabulating Thought content: Normal thought content present Insight: Fair insight present (Psych) Judgement: Fair judgement present (Psych) Results Reviewed Results Reviewed: 06/21/23 10/15/23 10/15/23 11:03 13:42 13:42 WBC Hgb Hct Plt Count Estimated GFR Total Bilirubin 1.2 H Direct Bilirubin 0.5 GGT 20 AST 25 ALT 21 Alkaline Phosphatase 84 Alpha Fetoprotein ADRIANNE Screen Anti-Mitochondrial Ab Anti-Smooth Muscle Ab Tiss Transglutamin IgG Tiss Transglutamin IgA Hep Bs Antigen Negative Hep Bs Antibody NONREACTIVE Hep B Core Total Ab Nonreactive Hepatitis C Ab (EIA) Nonreactive HIV 1&2 Ab/P24 Ag 4thGn Nonreactive 10/15/23 12/16/23 12/16/23 13:42 11:17 11:17 WBC 6.1 Hgb 12.4 Hct 39.0 Plt Count 254 Estimated GFR > 60 Total Bilirubin 0.9 Direct Bilirubin GGT AST 17 ALT 14 Alkaline Phosphatase Alpha Fetoprotein 1.3 ADRIANNE Screen NEGATIVE Anti-Mitochondrial Ab NEGATIVE Anti-Smooth Muscle Ab <20 Tiss Transglutamin IgG <1.0 Tiss Transglutamin IgA <1.0 Hep Bs Antigen Hep Bs Antibody Hep B Core Total Ab Hepatitis C Ab (EIA) HIV 1&2 Ab/P24 Ag 4thGn 12/16/23 11:17 WBC Hgb Hct Plt Count Estimated GFR Total Bilirubin Direct Bilirubin GGT AST ALT Alkaline Phosphatase 69 Alpha Fetoprotein ADRIANNE Screen Anti-Mitochondrial Ab Anti-Smooth Muscle Ab Tiss Transglutamin IgG Tiss Transglutamin IgA Hep Bs Antigen Hep Bs Antibody Hep B Core Total Ab Hepatitis C Ab (EIA) HIV 1&2 Ab/P24 Ag 4thGn Assessment & Plan Assessment & Plan (1) Elevated bilirubin: Comment: 06/21/2312/ [id number] Total Bilirubin 1.2 H Direct Bilirubin 0.5 GGT 20 AST 25 ALT 21 Alkaline Phosphatase 84 Hep Bs Antigen Negative Hep Bs Antibody NONREACTIVE Hep B Core Total Ab Nonreactive Hepatitis C Ab (EIA) Nonreactive HIV 1&2 Ab/P24 Ag 4thGn Nonreactive Plt Count 254 Estimated GFR > 60 Total Bilirubin 0.9 AST 17 ALT 14 Alkaline Phosphatase Alpha Fetoprotein 1.3 ADRIANNE Screen NEGATIVE Anti-Mitochondrial Ab NEGATIVE Anti-Smooth Muscle Ab <20 Tiss Transglutamin IgG <1.0 Tiss Transglutamin IgA <1.0 Alkaline Phosphatase 69 Code(s): R17 - Unspecified jaundice (2) Elevated LFTs: Code(s): R79.89 - Other specified abnormal findings of blood chemistry (3) GERD (gastroesophageal reflux disease): Code(s): K21.9 - Gastro-esophageal reflux disease without esophagitis Plan She is feeling very much better with the famotidine and this seems to have resolved all of her symptoms. Obviously we will continue this medication. It appears that we failed to get the H pylori breath test so will try to get a stool sample since she is already on acid reduction therapy. We reviewed the liver functions and there is no reason to suspect that she has anything other than Gilbert's syndrome syndrome. There does not appear to be any elevation ever mitochondrial antibodies or any biliary bile problems that would warrant further investigation. Of course this continues to be followed and make sure that there is no concerning changes. Return office visit in 6 months Orders: Orders H pylori Ag Stool Today K21.9 - Gastro-esophageal reflux disease without esophagitis Coding Level of Care Code Est Pt Level 3 (61753) Diagnoses Elevated bilirubin R17 Elevated LFTs R79.89 GERD (gastroesophageal reflux disease) K21.9
[2024-01-06 10:21] VITALS: BP 142/69; PULSE 88; BMI 28.0
== END 2024-01-06 10:43 | disposition home or self-care (01) ==
PROVIDERS: PCP Internal Medicine; Visit Provider Nurse Practitioner
DX: R17 Unspecified jaundice (principal); R79.89 Other specified abnormal findings of blood chemistry; K21.9 Gastro-esophageal reflux disease without esophagitis
CPT/HCPCS: 99213

== ENCOUNTER 2024-01-06 10:02 | Outpatient (REF) | payer OTHER, SELFPAY | END 2024-01-06 10:03 | disposition home or self-care (01) | LOC: HO.LAB 10:02 | PROVIDERS: PCP Internal Medicine; Visit Provider Nurse Practitioner | DX: R17 Unspecified jaundice (principal); R79.89 Other specified abnormal findings of blood chemistry; K21.9 Gastro-esophageal reflux disease without esophagitis | CPT/HCPCS: 99212 ==

== ENCOUNTER 2024-01-19 09:38 | Outpatient (AMB) | payer OTHER, SELFPAY ==
--- NOTE | 2024-01-19 10:14 | A.OFFVIS_ITS ---
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 She is wearing a week today she has a skin condition for which she has previously trimmed shaved her head so the cream that she is applying to her scalp can have closer access to her scalp. She has also had biopsies that did not fully distinguish between either psoriasis or eczema so there isn't a clear diagnosis yet but she is being treated with Dupixent. She will be having another biopsy in the near future as well. She also gets the rash sometimes in her vulvar area and also between her breasts and sometimes in other places as well. She is here with her 2-year-old son who recently got his shots and has been traumatized and has been crying a lot. She had her tubes tied and she has noted that ever since then she is get twinges on her right side she wondered if it was because she got up on the same side every day from bed. She is interested in STI testing. [facility] Medical History (Updated 01/19/24 @ 10:57 by Erika Samuels CNM) Psoriasis Localized swelling, mass and lump, neck History of COVID-19 History of kidney stones Depot contraception state Post term Encounter for supervision of normal in third trimester Breech presentation of fetus palpable vaginally Abdominal cramping affecting , antepartum Group B streptococcal bacteriuria COVID-19 Surgical History Hx of tubal ligation History of excision of mass Family History Father Medical history unknown Mother Heart valve problem Brother Epilepsy Maternal Grandmother Breast cancer Paternal Grandmother Hypertension Social History Household Members: Significant Other and Children Housing: Apartment Alcohol intake: never Patient Tobacco Use Status: Never used Tobacco e-Cigarette/Vaping Use: Never Used service: No Sexual orientation: Straight/Heterosexual Gender identity: Female Cognitive needs: No Hearing needs: No Vision needs: No Female Reproductive History Menstrual Age of Menarche: 12 Duration of menses: 3-5 days Date of last menstrual period: 01/11/24 control method: other (tubal ligation) Total pregnancies: 4 Full term: 4 Number of Living Children: 4 Date of last pap smear: 11/04/22 (+HPV) History of abnormal pap smear: Yes (2020 ASCUS) Physical Exam Vital Signs: Last Vital Signs BP 102/64 01/19/24 10:15 BMI result Body Mass Index 28.2 Const General: healthy appearing, comfortable, no acute distress, well developed and alert Nutritional Appearance: average body habitus Orientation/consciousness: patient oriented x3 Limitations: no limitations HEENT Head: Yes normocephalic Neck Neck: Yes normal visual inspection Chest Chest palpation & inspection: normal inspection of the chest Breast/axilla inspection: normal inspection of the breasts and normal inspection of the axillae Breast/axilla palpation: normal palpation of the breasts and normal palpation of the axillae Resp Effort & Inspection: normal respiratory effort GI Inspection: Yes normal to inspection, No Abdominal wall edema and No distended Palpation (GI): Soft to palpation and nontender Other: Vagina pink and moist patient has very strong muscle tone both with and without Kegel. Cervix multiparous midposition uterus midposition nontender adnexa nontender General: Yes bladder normal to palpation External Female Exam: normal external appearance and normal appearance of the urethra Speculum Exam - Vagina: normal appearance of the vagina, normal palpation and normal vaginal discharge Speculum Exam - Cervix: normal appearance of the cervix, normal palpation and nontender Bimanual exam- vagina & uterus: normal bimanual exam, normal palpation, uterine size normal, bladder normal to palpation, consistency normal, normal palpation, uterine mobility normal, uterine shape normal, No Cervical tenderness present, non-tender and no cervical motion tenderness Bimanual Exam- Adnexa, other: normal adnexae, no masses, normal and No adnexal tenderness Neuro General: patient oriented x3 Assessment & Plan Assessment & Plan (1) Psoriasis: Comment: Versus eczema versus other patient is currently being treated with Dupixent immune suppressant and will be having another biopsy Code(s): L40.9 - Psoriasis, unspecified (2) Well woman exam with routine gynecological exam: Code(s): Z01.419 - Encounter for gynecological examination (general) (routine) without abnormal findings (3) Cervical cancer screening: Comment: pap 2014 neg, pap 12/25/20= ascus, w neg HPV; had colpo/ bx 01/13 negative; pap done 11/03/22= HPV pos, pap is neg. Code(s): Z12.4 - Encounter for screening for malignant neoplasm of cervix (4) ASCUS of cervix with negative high risk HPV: Code(s): R87.610 - Atypical squamous cells of undetermined significance on cytologic smear of cervix (ASC-US) (5) Elevated LFTs: Code(s): R79.89 - Other specified abnormal findings of blood chemistry (6) Encounter for screening examination for sexually transmitted disease: Code(s): Z11.3 - Encounter for screening for infections with a predominantly sexual mode of transmission Plan -----Discussed in this visit the following: healthy balanced diet, regular and consistent exercise, getting recommended health screens, doing the best she can for her particular health concerns, kegel exercises, pap smear screening and followup recommendations, mammography screening and SBE, normal changes in cycles in her life stage--- . Testing ordered additionally for HIV hep B hep C and syphilis and testing done for gonorrhea chlamydia trichomoniasis Anna and Gardnerella along with the Pap smear. Reminded patient to reminder future providers if she is on an immune suppressant medication because then she would possibly need more frequent Paps in her case she needs when this year because of her past abnormal this is follow-up as well. Wished her luck with her ongoing journey to discover what is the actual issue with her skin. Interestingly she reminded me that she had elevated liver enzymes in her as well as pain up in her liver area and that was an issue in the though it was early in the before cholestasis would be an issue. She has continued with elevated liver enzymes and they check them because of the medication she is on. Orders: Orders Hepatitis B Surface Antigen Today Z11.3 - Encounter for screening for infections with a predominantly sexual mode of transmission Syphilis Screen Today Z11.3 - Encounter for screening for infections with a predominantly sexual mode of transmission Pap Smear Today Z12.4 - Encounter for screening for malignant neoplasm of cervix Hepatitis C Antibody Today Z11.3 - Encounter for screening for infections with a predominantly sexual mode of transmission HIV Ab/Ag Today Z11.3 - Encounter for screening for infections with a predominantly sexual mode of transmission Bacterial Vaginosis Panel Today Z11.3 - Encounter for screening for infections with a predominantly sexual mode of transmission CT NG by PCR Today Z11.3 - Encounter for screening for infections with a predominantly sexual mode of transmission Coding Level of Care Code Est Pt Prev Care [id number]([id number]) Diagnoses Psoriasis L40.9 Well woman exam with routine gynecological exam Z01.419 Cervical cancer screening Z12.4 ASCUS of cervix with negative high risk HPV R87.610 Elevated LFTs R79.89 Encounter for screening examination for sexually transmitted disease Z11.3
[2024-01-19 10:15] VITALS: BP 102/64; BMI 28.2
== END 2024-01-19 11:58 | disposition home or self-care (01) ==
PROVIDERS: PCP Internal Medicine; Visit Provider Advanced Practice Midwife
DX: Z01.419 Encounter for gynecological examination (general) (routine) without abnormal findings (principal); L40.9 Psoriasis, unspecified; R87.610 Atypical squamous cells of undetermined significance on cytologic smear of cervix (ASC-US); R79.89 Other specified abnormal findings of blood chemistry
CPT/HCPCS: 99395

== ENCOUNTER 2024-01-19 09:38 | Outpatient (REF) | payer OTHER, SELFPAY ==
[2024-01-25 21:14] LABS: HPV mRNA E6/E7 rflx Not Detected (Not Detected)
== END 2024-01-19 09:39 | disposition home or self-care (01) ==
LOC: HO.LNP 09:38
PROVIDERS: PCP Internal Medicine; Visit Provider Advanced Practice Midwife
DX: Z01.419 Encounter for gynecological examination (general) (routine) without abnormal findings (principal); Z11.51 Encounter for screening for human papillomavirus (HPV)
CPT/HCPCS: 87624; 88142; 99395

== ENCOUNTER 2024-01-19 11:06 | Outpatient (REF) | payer OTHER, SELFPAY ==
[2024-01-19 15:47] LABS: CT PCR NOT DETECTED (Not Detect.); NG PCR NOT DETECTED (Not Detect.)
[2024-01-20 07:06] LABS: HIV AB/AG Nonreactive (Nonreactive); HIV Num 1 0.05 S/CO (0.00-0.99); Hepatitis B Surface Antigen Negative (Negative); ~HepC Num1 0.09 S/CO (0.00-0.79); ~Hepatitis C Antibody Nonreactive (Nonreactive)
[2024-01-20 07:10] LABS: Syphilis Screen Nonreactive (Nonreactive)
[2024-01-20 11:31] LABS: BV Int Neg Control Negative (Negative); BV Int Pos Control Positive (Positive)
== END 2024-01-19 11:07 | disposition home or self-care (01) ==
LOC: HO.HHCL 11:06
PROVIDERS: Visit Provider Advanced Practice Midwife
DX: Z11.3 Encounter for screening for infections with a predominantly sexual mode of transmission (principal); Z11.4 Encounter for screening for human immunodeficiency virus [HIV]
CPT/HCPCS: 0353U; 86780; 86803; 87340; 87389; 87480; 87510; 87660

== ENCOUNTER 2024-03-14 15:05 | Outpatient (AMB) | payer OTHER, SELFPAY ==
--- NOTE | 2024-03-14 15:21 | A.OFFPC_ITS ---
Vital Signs 03/14/24 15:22 Height 5 ft 1 in Weight 149 lb BMI 28.2 BP 120/80 Blood Pressure Location Lt brachial Position Sitting Intake Visit Reasons: Skin condition/ referral Bung Sewer Required: No Accompanied by: Child Allergies vancomycin [VANCOMYCIN] Allergy (Severe, Verified 03/14/24 15:47) Anaphylaxis dupilumab [From Dupixent Pen] Adverse Reaction (Verified 03/14/24 15:53) tachycardia Medication List - Last Reconciled 03/14/24 by Lexus Ayala MD betamethasone dipropionate 0.05% 1 appl topical BID cholecalciferol (vitamin D3) 25 mcg PO DAILY dupilumab (Dupixent) 300 mg subcut Q2W famotidine (Pepcid) 40 mg PO BEDTIME ketoconazole 2% 1 appl topical 2XW tacrolimus 0.1% topical Tobacco use date assessed: 03/14/24 Dental Screening Dental Screen Date: 03/14/24 Did you have a dental visit in the last 12 months?: No Did you have a dental problem in the last 6 months where you did not have access to dental care?: No Was dental information given to patient?: Patient has dentist HPI HPI Comments History of Present Illness Details This is a 33-year-old female that comes today complaining of skin dryness in the scalp and other parts of the body that looks like psoriasis but biopsy was negative for it. She follows with dermatology but will like a 2nd opinion in [place]. No fever. [facility] Medical History Psoriasis Localized swelling, mass and lump, neck History of COVID-19 History of kidney stones Depot contraception state Post term Encounter for supervision of normal in third trimester Breech presentation of fetus palpable vaginally Abdominal cramping affecting , antepartum Group B streptococcal bacteriuria COVID-19 Surgical History Hx of tubal ligation History of excision of mass Family History Father Medical history unknown Mother Heart valve problem Brother Epilepsy Maternal Grandmother Breast cancer Paternal Grandmother Hypertension Social History Household Members: Significant Other and Children Housing: Apartment Alcohol intake: never Patient Tobacco Use Status: Never used Tobacco e-Cigarette/Vaping Use: Never Used Second Hand Smoke Exposure: No service: No Current occupational status: unemployed Sexual orientation: Straight/Heterosexual Gender identity: Female Cognitive needs: No Hearing needs: No Vision needs: No Female Reproductive History Menstrual Age of Menarche: 12 Questionnaire PHQ-9 Over the last 2 weeks, how often have you been bothered by any of the following problems? 1. Little interest or pleasure in doing things: not at all 2. Feeling down, depressed, or hopeless: not at all 3. Trouble falling or staying asleep, or sleeping too much: not at all 4. Feeling tired or having little energy: not at all 5. Poor appetite or overeating: not at all 6. Feeling bad about yourself - or that you are a failure or have let yourself or your family down: not at all 7. Trouble concentrating on things, such as reading the newspaper or watching television: not at all 8. Moving or speaking so slowly that other people could have noticed. Or the opposite - being so fidgety or restless that you have been moving around a lot more than usual: not at all 9. Thoughts that you would be better off or of hurting yourself in some way: not at all Total score: 0 Depression Screening Interpretation: Negative Depression Screening Done: Yes 05351 - PHQ-9 Billing: Yes Source: Developed by Drs. Bryon Lo, Rosa M Ford, Rory Palomares and colleagues, with an educational chuckie from [employer]. Thrive Questionnaire Date Thrive assessed: 03/14/24 I am a: Patient What is your living situation today?: I have a steady place to live Within the past 12 months, did the food you bought not last and you didn't have the money to get more?: Never true Within the past 12 months, did you worry whether your food would run out before you got money to buy more?: Never true Do you have trouble paying for medicines?: No Do you have trouble getting transportation to medical appointments?: No Do you have trouble paying your heating and electricity bill?: No Do you have trouble taking care of your child, family member or friend?: No Do you have trouble with day-to-day activities such as bathing, preparing meals, shopping, managing finances, etc.?: No Are you currently unemployed and looking for a job?: No Are you interested in more education?: No Please select the resources that you would like help with: None Currently or been in a relationship where the following occur: no concerns reported THRIVE Score: 0 AUDIT C Alcohol Use Questionnaire (AUDIT-C) 1. How often do you have a drink containing alcohol?: Never Total Score: 0 LYNDA-7 AMB Questionnaire LYNDA-7 Date LYNDA - 7 assessed: 03/14/24 Feeling nervous, anxious, or on edge: 3 = Nearly every day Not being able to stop or control worryin = Not at all Worrying too much about different things: 2 = More than half the days Trouble relaxin = Not at all Being so restless that it is hard to sit still: 0 = Not at all Becoming easily annoyed or irritable: 0 = Not at all Feeling afraid as if something awful might happen: 0 = Not at all Total LYNDA-7 score (0-4 normal; 5-9 mild; 10-14 moderate; 15-21 severe): 5 Source: Developed by Drs. Bryon Lo, Rosa M Ford, Rory Palomares and colleagues, with an educational chuckie from [employer]. LYNDA-7 Assessment Billing LYNDA-7 Assessment Tool: LYNDA-7 Assessment 47466 Review of Systems Const All systems reviewed & are unremarkable except as noted in HPI and below Card Denies chest pain at rest, Denies chest pain with activity, Denies edema, Denies irregular heart rhythm, Denies claudication, Denies dyspnea, Denies dyspnea on exertion, Denies orthopnea, Denies paroxysmal nocturnal dyspnea and Denies slow heart rate Resp Denies cough, Denies dyspnea and Denies dyspnea on exertion GI Denies abdominal pain, Denies change in bowel habits, Denies excessive flatus, Denies nausea and Denies vomiting Denies urinary incontinence, Denies urinary hesitancy and Denies urinary urgency Physical exam (Primary Care) Vital Signs: Last Vital Signs BP 120/80 03/14/24 15:22 BMI result Body Mass Index 28.2 Tobacco/Smoking Status: Tobacco use Status Tobacco use date assessed 03/14/24 03/14/24 15:31 Patient Tobacco Use Status Never used Tobacco 03/14/24 15:31 e-Cigarette/Vaping Use Never Used 03/14/24 15:31 PHQ-9: PHQ-9 Score PHQ-9: Total score 0 03/14/24 15:50 Depression Screening Interpretation: Negative Thrive Assessment: Date of Thrive Assessment Date Thrive assessed 03/14/24 03/14/24 15:31 Currently or been in a relationship where the following occur: no concerns reported Resp Effort & Inspection: normal respiratory effort Auscultation: clear to auscultation bilaterally Cardio Jugular venous distension: no JVD Rate: regular rate Rhythm: regular rhythm Heart sounds: S1 normal heart sound present and S2 normal heart sound present Extrem General: Yes full ROM Assessment and Plan Assessment & Plan (1) Skin lesion: Code(s): L98.9 - Disorder of the skin and subcutaneous tissue, unspecified Plan: Referral to dermatology in [place] for 2nd opinion. Orders: Referrals Dermatology Referral L40.9 - Psoriasis, unspecified, L98.9 - Disorder of the skin and subcutaneous tissue, unspecified Coding Level of Care Code Est Pt Level 3 (43353) Diagnoses Skin lesion L98.9 Additional Codes LYNDA-7 Assessment Billing - LYDNA-7 Assessment Tool: LYNDA-7 Assessment 76796 ([id number]) Time Spent (min) 19
[2024-03-14 15:22] VITALS: BP 120/80; BMI 28.2
== END 2024-03-14 15:59 | disposition home or self-care (01) ==
PROVIDERS: PCP Internal Medicine; Visit Provider Internal Medicine
DX: L98.9 Disorder of the skin and subcutaneous tissue, unspecified (principal)
CPT/HCPCS: 99213

== ENCOUNTER 2024-03-17 11:21 | Outpatient (REF) | payer OTHER, SELFPAY ==
[2024-03-17 11:44] LABS: MANUAL DIFF FLAG NO
[2024-03-17 12:31] LABS: Basophils Absolute Auto 0.1 X10*3/uL (0.0-0.2); Basophils Percent Auto 0.9 % (0-2); Eosinophils Absolute Auto 0.1 X10*3/uL (0.0-0.4); Eosinophils Percent Auto 1.2 % (0-4); Hematocrit 37.5 % (37.0-47.0); Hemoglobin 12.2 g/dl (12.0-16.0); Imm Gran Abs Auto 0.03 X10*3/uL (0.00-0.03); Imm Gran Pct Auto 0.4 % (0.0-0.4); Lymphocytes Absolute Auto 1.2 X10*3/uL (1.2-4.9); Lymphocytes Percent Auto 18.4 % (20-40); Mean Corpuscular HGB Conc 32.5 g/dl (31.0-35.0); Mean Corpuscular Hemoglobin 26.8 pg (27.0-33.0); Mean Corpuscular Volume 82.2 fL (80.0-98.0); Mean Platelet Volume 10.8 fL (9.4-12.3); Monocytes Absolute Auto 0.4 X10*3/uL (0.1-1.2); Monocytes Percent Auto 5.6 % (2-11); Neutrophils Absolute Auto 4.9 x10*3/uL (2.0-8.3); Neutrophils Percent Auto 73.5 % (45-73); Platelet Count 302 X10*3/uL (160-400); Red Blood Count 4.56 X10*6/uL (4.20-5.50); Red Cell Distribution Width 13.6 % (11.0-16.0); White Blood Count 6.7 X10*3/uL (4.8-10.8)
[2024-03-17 13:00] LABS: Alanine Aminotransferase 27 U/L (0-31); Albumin Level 4.4 g/dL (3.5-5.0); Alkaline Phosphatase 68 U/L (39-117); Anion Gap 11 (12-20); Aspartate Amino Transferase 41 U/L (5-31); Bilirubin Direct 0.6 mg/dL (0.0-0.5); Bilirubin Total 2.3 mg/dL (0.0-1.0); Blood Urea Nitrogen 13 mg/dL (9-16); Calcium 9.7 mg/dL (8.4-10.2); Carbon Dioxide 27 mmol/L (22-29); Chloride 106 mmol/L (96-108); Estimated Glomerular Filt Rate > 60; Glucose Random 94 mg/dL (60-115); Potassium 3.4 mmol/L (3.3-5.1); Sodium 141 mmol/L (135-145)
[2024-03-19 20:13] LABS: TS Negative Control Passed; TS Panel A 0; TS Panel B 0; TS Positive Control Passed; TSpotTB Negative (Negative)
== END 2024-03-17 11:22 | disposition home or self-care (01) ==
LOC: HO.LAB 11:21
PROVIDERS: PCP Internal Medicine; Visit Provider Dermatology
DX: L40.0 Psoriasis vulgaris (principal)
CPT/HCPCS: 36415; 80053; 82248; 85025; 86481

== ENCOUNTER 2024-03-21 11:49 | Outpatient (REF) | payer OTHER, SELFPAY ==
[2024-03-21 12:56] LABS: Cholesterol 113 mg/dL (<200); HDL Cholesterol 44 mg/dL (>40); LDL Cholesterol Calculated 60 mg/dL (<100); Triglycerides 47 mg/dL (<150)
== END 2024-03-21 11:50 | disposition home or self-care (01) ==
LOC: HO.LAB 11:49
PROVIDERS: Visit Provider Dermatology
DX: L40.0 Psoriasis vulgaris (principal)
CPT/HCPCS: 36415; 80061

== ENCOUNTER 2024-11-14 13:00 | Outpatient (AMB) | payer OTHER, SELFPAY ==
[2024-11-14 13:08] VITALS: BP 112/74; BMI 28.2
--- NOTE | 2024-11-14 13:08 | A.OFFVIS_ITS ---
Vital Signs 11/14/24 13:08 Height 5 ft 1 in Weight 149 lb BMI 28.2 BP 112/74 Intake Visit Reasons: std testing Finance Assistant Required: No Finance Assistant Services: Finance Assistant Present Information Interpreted: clinical only Rod Greaser: Rod Greaser Present Allergies vancomycin [VANCOMYCIN] Allergy (Severe, Verified 11/14/24 13:09) Anaphylaxis dupilumab [From Dupixent Pen] Adverse Reaction (Verified 11/14/24 13:09) tachycardia Medication List - Last Reconciled 11/14/24 by Erika Samuels CNM betamethasone dipropionate 0.05% 1 appl topical BID cholecalciferol (vitamin D3) 25 mcg PO DAILY deucravacitinib (Sotyktu) 6 mg PO DAILY famotidine 40 mg PO BEDTIME ketoconazole 2% 1 appl topical 2XW tacrolimus 0.1% topical Is last menstrual period known: Yes Last menstrual period: 11/11/24 Do you need a note to return to daycare/school/sports/work: No HPI HPI std testing: Details: Patient is here because she wants to get checked for STIs. She felt something a little bit different after she had sex with father of her baby they have been together often on for 4 years. She has a history of psoriasis eczema. Interestingly we reviewed she has a history of a rash in and liver enzymes that were elevated and was diagnosed with cholestasis of though it was very early in the . She says she gets her liver enzymes checked frequently because of her biologic medications that she is prescribed for her psoriasis and her liver enzymes have continued to be elevated periods. She also last week had some symptoms that might of indicated a UTI and she called her doctor and had a urinalysis and she did notice it result was in on the portal and called her doctor this morning about that and is waiting on the call back for decision about what she will be treated with, she is interested in getting blood work for STI, she started her period just now noting it in the bathroom when she voided before getting undressed. [facility] Medical History Psoriasis Localized swelling, mass and lump, neck History of COVID-19 History of kidney stones Depot contraception state Post term Encounter for supervision of normal in third trimester Breech presentation of fetus palpable vaginally Abdominal cramping affecting , antepartum Group B streptococcal bacteriuria COVID-19 Surgical History Hx of tubal ligation History of excision of mass Family History Father Medical history unknown Mother Heart valve problem Brother Epilepsy Maternal Grandmother Breast cancer Paternal Grandmother Hypertension Social History Household Members: Significant Other and Children Housing: Apartment Alcohol intake: never Patient Tobacco Use Status: Never used Tobacco e-Cigarette/Vaping Use: Never Used Second Hand Smoke Exposure: No service: No Current occupational status: unemployed Sexual orientation: Straight/Heterosexual Gender identity: Female Cognitive needs: No Hearing needs: No Vision needs: No Female Reproductive History Menstrual Age of Menarche: 12 Duration of menses: 3-5 days Date of last menstrual period: 11/11/24 control method: permanent sterilization Total pregnancies: 4 Full term: 4 Date of last pap smear: 01/21/24 (negative) Physical Exam Vital Signs: Last Vital Signs BP 112/74 11/14/24 13:08 BMI result Body Mass Index 28.2 Other: Menses present patient has very tight vaginal muscle tone needing to challenge of opening speculum completely front edge of cervix visible pink smooth mobile with moderate menses.. There is a 1 cm lesion that is unroofed on left labia/mons pubis. It is contiguous with another area that could be her psoriasis and that is what the patient thought it might be it was a little bit uncomfortable when probed Q-tip a culture was taken to rule out HSV teaching done just in case it is positive. If it is it is most likely a recurrence that has been masked by her psoriasis. (note when the Q-tips swab swabbed the lesion it had a tinge of blood on the Q- tip which would be more consistent with a non herpetic lesion.) External Female Exam: normal external appearance and normal appearance of the urethra Speculum Exam - Vagina: normal appearance of the vagina and normal vaginal discharge Speculum Exam - Cervix: normal appearance of the cervix and Cervical os closed Assessment & Plan Assessment & Plan (1) Psoriasis: Comment: Versus eczema versus other patient is currently being treated with Dupixent immune suppressant and will be having another biopsy Code(s): L40.9 - Psoriasis, unspecified Category: Medical (2) Encounter for screening examination for sexually transmitted disease: Code(s): Z11.3 - Encounter for screening for infections with a predominantly sexual mode of transmission Category: Medical (3) Vulvar lesion: Comment: Herpes culture done. Teaching done just in case. it may be her psoriasis. Code(s): N90.89 - Other specified noninflammatory disorders of vulva and perineum Category: Medical Plan Testing done during the visit with swabs for gonorrhea chlamydia trichomoniasis as well as bacterial vaginosis and yeast. I did a herpes culture on the lesion on her left labia/mons pubis. It bled a tiny amount on Q-tip which would be less consistent with herpes. Teaching was done about herpes just in case if it were positive we will not know for about a week and we would let her know if it were additionally if it were herpes it most likely would of been present there for a very long time and masked by her psoriasis. Blood work ordered for HIV hep B hep C and syphilis. She is heading to the [facility] now to get blood work for her son so this is a perfect time for her to get her labs and she will be at the office of her primary care provider and I recommend she stopped by to see if a recommendation has been made for her treatment if any. She is on the portal and can find out results but we would let her know about any positive so of course. Labs at her convenience RTC for annual in spring whenever it is scheduled Orders: Orders Hepatitis B Surface Antigen Today L40.9 - Psoriasis, unspecified, N90.89 - Other specified noninflammatory disorders of vulva and perineum, Z11.3 - Encounter for screening for infections with a predominantly sexual mode of transmission Hepatitis C Antibody Today L40.9 - Psoriasis, unspecified, N90.89 - Other specified noninflammatory disorders of vulva and perineum, Z11.3 - Encounter for screening for infections with a predominantly sexual mode of transmission HIV Ab/Ag Today L40.9 - Psoriasis, unspecified, N90.89 - Other specified noninflammatory disorders of vulva and perineum, Z11.3 - Encounter for screening for infections with a predominantly sexual mode of transmission Syphilis Screen Today L40.9 - Psoriasis, unspecified, N90.89 - Other specified noninflammatory disorders of vulva and perineum, Z11.3 - Encounter for screening for infections with a predominantly sexual mode of transmission Coding Level of Care Code Est Pt Level 3 (31153) Diagnoses Psoriasis L40.9 Encounter for screening examination for sexually transmitted disease Z11.3 Vulvar lesion N90.89
== END 2024-11-14 13:46 | disposition home or self-care (01) ==
LOC: HO.HWSM 13:00
PROVIDERS: PCP Internal Medicine; Visit Provider Advanced Practice Midwife
DX: L40.9 Psoriasis, unspecified (principal); Z11.3 Encounter for screening for infections with a predominantly sexual mode of transmission; N90.89 Other specified noninflammatory disorders of vulva and perineum
CPT/HCPCS: 99213

== ENCOUNTER 2024-11-14 13:53 | Outpatient (REF) | payer OTHER, SELFPAY ==
[2024-11-15 08:20] LABS: Syphilis Screen Nonreactive (Nonreactive)
[2024-11-15 08:25] LABS: HIV AB/AG Nonreactive (Nonreactive); HIV Num 1 0.05 S/CO (0.00-0.99); Hepatitis B Surface Antigen Negative (Negative); ~HepC Num1 0.08 S/CO (0.00-0.79); ~Hepatitis C Antibody Nonreactive (Nonreactive)
== END 2024-11-14 13:54 | disposition home or self-care (01) ==
LOC: HO.HHCL 13:53
PROVIDERS: Visit Provider Advanced Practice Midwife
DX: L40.9 Psoriasis, unspecified (principal); N89.8 Other specified noninflammatory disorders of vagina; Z20.2 Contact with and (suspected) exposure to infections with a predominantly sexual mode of transmission; Z11.3 Encounter for screening for infections with a predominantly sexual mode of transmission; N90.89 Other specified noninflammatory disorders of vulva and perineum
CPT/HCPCS: 36415; 86780; 86803; 87340; 87389

== ENCOUNTER 2024-12-22 15:27 | Outpatient (AMB) | payer OTHER, SELFPAY ==
[2024-12-22 15:50] VITALS: BP 110/82; PULSE 78; TEMP 36.3; O2SAT 98; BMI 31.2
--- NOTE | 2024-12-22 15:50 | A.OFFPC_ITS ---
Vital Signs 12/22/24 15:50 Height 5 ft 1 in Weight 165 lb 4 oz BMI 31.2 BP 110/82 Blood Pressure Location Lt brachial Position Sitting Pulse 78 Pulse Source Pulse Oximeter Temp 97.3 F Temp Source Temporal Artery Scan Pulse Oximetry (%) 98 Oxygen Delivery Method Room Air Intake Visit Reasons: RENZO Dr Celeste Intake Note: Pt is here for RENZO from Dr. Celeste overdue for PE. [employer] Required: No Accompanied by: Self / Same As Patient Allergies vancomycin [VANCOMYCIN] Allergy (Severe, Verified 12/22/24 15:57) Anaphylaxis dupilumab [From Dupixent Pen] Adverse Reaction (Verified 12/22/24 15:57) tachycardia Medication List - Last Reconciled 12/22/24 by Lamar Jensen PA-C betamethasone dipropionate 0.05% 1 appl topical BID cholecalciferol (vitamin D3) 25 mcg PO DAILY deucravacitinib (Sotyktu) 6 mg PO DAILY famotidine 40 mg PO BEDTIME ketoconazole 2% 1 appl topical 2XW tacrolimus 0.1% topical Tobacco use date assessed: 12/22/24 Dental Screening Dental Screen Date: 12/22/24 Did you have a dental visit in the last 12 months?: Yes Did you have a dental problem in the last 6 months where you did not have access to dental care?: No Was dental information given to patient?: Patient has dentist HPI RENZO Dr Celeste HPI Details 34-year-old female with past medical his tory of low vitamin-D, psoriasis, GERD last seen by Dr. Celeste 02/2024 coming in for transfer of care. In review of the notes, patient was seen in [facility] ED 11/21/2024 for pain with urination, given cefpodoxime for UTI and discharged home. Patient was seen by Gynecology 11/14/2024 Pap smear was taken biopsy of lesion was taken as while and has follow up in the next coming months. Pap smear: UTD and follows with gynecology Presenting with recurrent urinary tract infections and psoriasis. She is experiencing an exacerbation of psoriasis symptoms, correlated with increased stress levels and fewer visits to dermatology due to personal familial responsibilities. Reports consistent urinary tract infections speculated to result from genital psoriasis plaques, as discussed with an [facility] physician. Post- surgical dizziness and nausea after a wisdom tooth extraction, with minimal pain management using non-opioid medications. Water intake might be suboptimal post- surgery. Complains of shortness of breath that coincides with psoriasis flare- ups, exacerbated by the medication used for treatment. Lower abdominal pain is notably worse during menstrual periods which has been present for several years. [facility] Medical History (Updated 12/22/24 @ 16:31 by Lamar Jensen PA-C) Psoriasis Localized swelling, mass and lump, neck History of COVID-19 History of kidney stones Depot contraception state Post term Encounter for supervision of normal in third trimester Breech presentation of fetus palpable vaginally Abdominal cramping affecting , antepartum Group B streptococcal bacteriuria COVID-19 Surgical History (Updated 12/22/24 @ 15:58 by Lamar Jensen PA-C) H/O oral surgery Hx of tubal ligation History of excision of mass Family History Father Medical history unknown Mother Heart valve problem Brother Epilepsy Maternal Grandmother Breast cancer Paternal Grandmother Hypertension Social History Household Members: Significant Other and Children Housing: Apartment Alcohol intake: never Patient Tobacco Use Status: Never used Tobacco e-Cigarette/Vaping Use: Never Used Second Hand Smoke Exposure: No service: No Current occupational status: unemployed Sexual orientation: Straight/Heterosexual Gender identity: Female Cognitive needs: No Hearing needs: No Vision needs: No Female Reproductive History Menstrual Age of Menarche: 12 control method: permanent sterilization Permanent Sterilization: BTL Total pregnancies: 4 Full term: 4 Questionnaire PHQ-9 Over the last 2 weeks, how often have you been bothered by any of the following problems? 1. Little interest or pleasure in doing things: not at all 2. Feeling down, depressed, or hopeless: not at all 3. Trouble falling or staying asleep, or sleeping too much: not at all 4. Feeling tired or having little energy: not at all 5. Poor appetite or overeating: not at all 6. Feeling bad about yourself - or that you are a failure or have let yourself or your family down: not at all 7. Trouble concentrating on things, such as reading the newspaper or watching television: not at all 8. Moving or speaking so slowly that other people could have noticed. Or the opposite - being so fidgety or restless that you have been moving around a lot more than usual: not at all 9. Thoughts that you would be better off or of hurting yourself in some way: not at all Total score: 0 Depression Screening Interpretation: Negative Depression Screening Done: Yes 59983 - PHQ-9 Billing: Yes Source: Developed by Drs. Bryon Lo, Rosa M Ford, Rory Palomares and colleagues, with an educational chuckie from [employer]. Thrive Questionnaire Date Thrive assessed: 12/22/24 I am a: Patient What is your living situation today?: I have a steady place to live Within the past 12 months, did the food you bought not last and you didn't have the money to get more?: Never true Within the past 12 months, did you worry whether your food would run out before you got money to buy more?: Never true Do you have trouble paying for medicines?: No Do you have trouble getting transportation to medical appointments?: No Do you have trouble paying your heating and electricity bill?: No Do you have trouble taking care of your child, family member or friend?: No Do you have trouble with day-to-day activities such as bathing, preparing meals, shopping, managing finances, etc.?: No Are you currently unemployed and looking for a job?: No Are you interested in more education?: No Please select the resources that you would like help with: None Currently or been in a relationship where the following occur: No concerns reported THRIVE Score: 0 AUDIT C Alcohol Use Questionnaire (AUDIT-C) 1. How often do you have a drink containing alcohol?: Never 3. How often do you have six or more drinks on one occasion?: Never Total Score: 0 LYNDA-7 AMB Questionnaire LYNDA-7 Date LYNDA - 7 assessed: 12/22/24 Feeling nervous, anxious, or on edge: 0 = Not at all Not being able to stop or control worryin = Not at all Worrying too much about different things: 0 = Not at all Trouble relaxin = Not at all Being so restless that it is hard to sit still: 0 = Not at all Becoming easily annoyed or irritable: 0 = Not at all Feeling afraid as if something awful might happen: 0 = Not at all Total LYNDA-7 score (0-4 normal; 5-9 mild; 10-14 moderate; 15-21 severe): 0 Source: Developed by Drs. Bryon Lo, Rosa M Ford, Rory Palomares and colleagues, with an educational chuckie from [employer]. LYNDA-7 Assessment Billing LYNDA-7 Assessment Tool: LYNDA-7 Assessment 41243 Review of Systems Const Denies body aches, Denies chills, Denies fatigue, Denies fever(s), Denies headache(s) and Denies poor appetite Eyes Reports no additional complaints ENT Denies dysphagia, Denies dizziness, Denies headache(s) and Denies odynophagia Card Denies chest pain, Denies syncope, Denies edema, Denies irregular heart rhythm, Denies lightheadedness and Denies dyspnea Resp Denies cough and Denies dyspnea GI Denies abdominal pain, Denies constipation, Denies dysphagia, Denies diarrhea, Denies nausea, Denies odynophagia and Denies vomiting Reports no additional complaints Musc Reports no additional complaints and Denies abnormal gait Skin/Breast Reports system reviewed and no additional complaints, except as documented Neuro Denies abnormal gait, Denies dizziness, Denies syncope and Denies headache(s) Psych Reports no additional complaints Endo Denies fatigue Physical exam (Primary Care) BMI result Body Mass Index 31.2 Tobacco/Smoking Status: Tobacco use Status Tobacco use date assessed 03/14/24 03/14/24 15:31 Patient Tobacco Use Status Never used Tobacco 03/14/24 15:31 e-Cigarette/Vaping Use Never Used 03/14/24 15:31 Depression Screening Interpretation: Negative Thrive Assessment: Date of Thrive Assessment Date Thrive assessed 03/14/24 03/14/24 15:31 Currently or been in a relationship where the following occur: No concerns reported Const General: cooperative, healthy appearing, comfortable and no acute distress Orientation/consciousness: patient oriented x3 HENMT Head: Yes normocephalic Ears: hearing grossly normal bilaterally General nose exam: Normal external nose present Face and sinus: Yes normal facial exam and Yes sinuses nontender Mouth: Normal oral and palatal mucosa present and tongue normal Throat: Yes posterior oropharynx normal Eyes General: appearance normal, both eyes and all related structures Conjunctivae: conjunctivae normal Pupils: Equal, round and reactive pupils present EOM: EOMs intact bilaterally and No Nystagmus present Neck Neck: Yes full ROM and Yes no lymphadenopathy Chest Chest palpation & inspection: normal inspection of the chest Resp Effort & Inspection: normal respiratory effort Auscultation: clear to auscultation bilaterally, no crackles, no rales, no rhonchi and no wheezes Cardio Rate: regular rate Rhythm: regular rhythm Peripheral pulses: radial pulses present and dorsalis pedis present GI Inspection: Yes normal to inspection and No Abdominal wall edema Palpation (GI): Soft to palpation, not firm and nontender Auscultation: normal bowel sounds Rectal Exam - Female: deferred General: Yes no CVA tenderness Back/Spine/Pelvis Back: no CVA tenderness Skin General skin exam: no rashes or lesions noted Neuro General: patient oriented x3 Cranial nerves: Yes Equal, round and reactive pupils present, Yes Midline tongue present, Yes Ability to bilaterally elevate shoulders present and No Nystagmus present Gait exam (Neuro): Normal gait present Extrem General: Yes normal to inspection, Yes full ROM and No edema Psych Speech and movement: Normal speech and movement present Affect: normal affect Attitude: cooperative Insight: Good insight present (Psych) Judgement: Good judgement present (Psych) Coding Level of Care Code Est Pt Prev Care 18-39y(80342) Diagnoses Vulvar lesion N90.89 GERD (gastroesophageal reflux disease) K21.9 Fatty liver K76.0 Psoriasis L40.9 Annual physical exam Z00.00 Shortness of breath R06.02 Dysmenorrhea N94.6 Suprapubic pain R10.2 Additional Codes LYNDA-7 Assessment Billing - LYNDA-7 Assessment Tool: LYNDA-7 Assessment 42268 ([id number]) PHQ-9 - 98684 - PHQ-9 Billing: Yes ([id number]) Assessment & Plan Assessment & Plan (1) Vulvar lesion: Comment: Herpes culture done. Teaching done just in case. it may be her psoriasis. Code(s): N90.89 - Other specified noninflammatory disorders of vulva and perineum Category: Medical Plan: Patient currently following with gynecology and has follow up to review results in the next few months. (2) GERD (gastroesophageal reflux disease): Code(s): K21.9 - Gastro-esophageal reflux disease without esophagitis Category: Medical Plan: Avoid trigger foods such as citrus, tomato products, soda, caffeine, spicy foods and other foods that may be irritating to your stomach. Avoid laying flat 3-4 hours after eating and elevate the head of the bed 30 degrees to prevent acid from moving into the esophagus. (3) Fatty liver: Code(s): K76.0 - Fatty (change of) liver, not elsewhere classified Category: Medical Plan: Healthy diet and regular exercise is encouraged. (4) Psoriasis: Comment: Versus eczema versus other patient is currently being treated with Dupixent immune suppressant and will be having another biopsy Code(s): L40.9 - Psoriasis, unspecified Category: Medical Plan: Management of psoriasis will continue with current topical treatments and a consideration of systemic intervention to follow depending on her specialist's availability. Continue to follow with [facility] (5) Annual physical exam: Code(s): Z00.00 - Encounter for general adult medical examination without abnormal findings Category: Medical Plan: Patient is up-to-date on all recommended routine screenings and vaccinations for her age. Blood work is up-to-date and within normal limits ordered however given it was 1 year ago plan to order for updated blood work. Healthy diet and regular exercise is encouraged. (6) Shortness of breath: Code(s): R06.02 - Shortness of breath Category: Medical Plan: We will commit to rule out asthma with her reported shortness of breath potentially linked to autoimmune responses. Ordered for PFTs (7) Dysmenorrhea: Code(s): N94.6 - Dysmenorrhea, unspecified Category: Medical Plan: Patient complaining of painful periods and suprapubic pain throughout the day. Ordered for pelvic and transvaginal ultrasound for further evaluation. Plan to follow up in 3 months (8) Suprapubic pain: Code(s): R10.2 - Pelvic and perineal pain Category: Medical Plan: Patient complaining of painful periods and suprapubic pain throughout the day. Ordered for pelvic and transvaginal ultrasound for further evaluation. Plan to follow up in 3 months Plan Patient was informed and verbally consented to the use of an ambient scribe for clinic note documentation during this visit. This note was constructed using voice recognition software. While every effort has been made to ensure accuracy and beverage server, still areas may have been included sometimes these areas may affect the content or meeting of the given symptoms. Total time spent caring for the patient today was 30 minutes. This includes time spent before the visit reviewing the chart, time spent during the visit, and time spent after the visit and documentation. Orders: Orders PFT pulmonary function test Today R06.02 - Shortness of breath Comprehensive Met. Panel Today Z00.00 - Encounter for general adult medical examination without abnormal findings Vitamin D 25-OH Total Today Z00.00 - Encounter for general adult medical examination without abnormal findings Complete Blood Count Auto Diff Today Z00.00 - Encounter for general adult medical examination without abnormal findings Lipid Panel Today E78.00 - Pure hypercholesterolemia, unspecified TSH reflex Free T4 Today Z00.00 - Encounter for general adult medical examination without abnormal findings Vitamin B12 and Folate Today Z00.00 - Encounter for general adult medical examination without abnormal findings UA CC w/rflx Micro + Cult Today R35.89 - Other polyuria US pelvic and transvaginal Today N94.6 - Dysmenorrhea, unspecified Referrals Optometry Referral Z00.00 - Encounter for general adult medical examination without abnormal findings
== END 2024-12-22 16:14 | disposition home or self-care (01) ==
PROVIDERS: PCP Internal Medicine
DX: N90.89 Other specified noninflammatory disorders of vulva and perineum (principal); K21.9 Gastro-esophageal reflux disease without esophagitis; K76.0 Fatty (change of) liver, not elsewhere classified; L40.9 Psoriasis, unspecified; Z00.00 Encounter for general adult medical examination without abnormal findings; R06.02 Shortness of breath; N94.6 Dysmenorrhea, unspecified; R10.2 Pelvic and perineal pain

== ENCOUNTER → 2024-12-22 15:27 | Outpatient (BNVA) | payer OTHER, SELFPAY | PROVIDERS: PCP Internal Medicine | DX: Z00.00 Encounter for general adult medical examination without abnormal findings (principal); N90.89 Other specified noninflammatory disorders of vulva and perineum; K21.9 Gastro-esophageal reflux disease without esophagitis; K76.0 Fatty (change of) liver, not elsewhere classified; L40.9 Psoriasis, unspecified; R06.02 Shortness of breath; N94.6 Dysmenorrhea, unspecified; R10.2 Pelvic and perineal pain | CPT/HCPCS: 96127; 99395 ==

== ENCOUNTER 2024-12-27 11:36 | Outpatient (REF) | payer OTHER, SELFPAY ==
--- NOTE | ~2024-12-27 | US_ITS ---
CLINICAL HISTORY: N94.6 - Dysmenorrhea, unspecified US pelvis transvaginal and transabdominal Comparison: None Findings: Transvaginal and transabdominal scanning performed. The uterus is normal in size, measuring 9.1 cm in length. The endometrial stripe is heterogenous and thickened at 1.9 cm. Subcentimeter nabothian cyst is seen in the cervix. The right ovary measures 3.3 x 1.8 x 2.0 cm. The left ovary measures 3.3 x 1.7 x 2.7 cm. Small amount of free fluid is seen in the cul-de-sac. IMPRESSION: 1. Heterogenous and thickened 1.9 cm endometrial stripe. Recommend gynecologic consultation. 2. Small amount of free fluid in the cul-de-sac. This document has been electronically signed by: Malcolm Tomas on 12/29/2024 08:23:22
[2024-12-27 12:03] LABS: MANUAL DIFF FLAG NO
[2024-12-27 12:13] LABS: Basophils Percent Auto 0.6 % (0-2); Eosinophils Absolute Auto 0.2 X10*3/uL (0.0-0.4); Eosinophils Percent Auto 2.2 % (0-4); Hematocrit 37.7 % (37.0-47.0); Hemoglobin 12.3 g/dl (12.0-16.0); Imm Gran Abs Auto 0.01 X10*3/uL (0.00-0.03); Imm Gran Pct Auto 0.1 % (0.0-0.4); Lymphocytes Absolute Auto 1.5 X10*3/uL (1.2-4.9); Lymphocytes Percent Auto 22.4 % (20-40); Mean Corpuscular HGB Conc 32.6 g/dl (31.0-35.0); Mean Corpuscular Hemoglobin 26.6 pg (27.0-33.0); Mean Corpuscular Volume 81.6 fL (80.0-98.0); Mean Platelet Volume 10.4 fL (9.4-12.3); Monocytes Absolute Auto 0.4 X10*3/uL (0.1-1.2); Monocytes Percent Auto 5.6 % (2-11); Neutrophils Absolute Auto 4.7 x10*3/uL (2.0-8.3); Neutrophils Percent Auto 69.1 % (45-73); Platelet Count 258 X10*3/uL (160-400); Red Blood Count 4.62 X10*6/uL (4.20-5.50); Red Cell Distribution Width 13.3 % (11.0-16.0); White Blood Count 6.8 X10*3/uL (4.8-10.8)
[2024-12-27 12:18] LABS: Appearance Urine Clear; Color Urine Yellow; Glucose Urine UA Negative (Negative); Leukocyte Esterase Urine Negative (Negative); Nitrite Urine Negative (Negative); PH 5.5 (5.0-9.0); Specific Gravity - Urine 1.025 (1.005-1.025); Urine Blood Negative (Negative); Urine Ketones Negative (Negative); Urine Protein Negative (Neg-Trace)
[2024-12-27 13:10] LABS: Alanine Aminotransferase 93 U/L (0-31); Albumin Level 4.2 g/dL (3.5-5.0); Alkaline Phosphatase 68 U/L (39-117); Anion Gap 8 (12-20); Aspartate Amino Transferase 46 U/L (5-31); Bilirubin Total 1.3 mg/dL (0.0-1.0); Blood Urea Nitrogen 11 mg/dL (9-16); Carbon Dioxide 26 mmol/L (22-29); Chloride 110 mmol/L (96-108); Cholesterol 158 mg/dL (<200); Estimated Glomerular Filt Rate > 60; Glucose Random 91 mg/dL (60-115); HDL Cholesterol 43 mg/dL (>40); LDL Cholesterol Calculated 99 mg/dL (<100); Potassium 4.2 mmol/L (3.3-5.1); Sodium 140 mmol/L (135-145); TSH reflex Free T4 0.74 uIU/mL (0.32-4.0); Total Protein 7.9 g/dL (6.5-8.0); Triglycerides 82 mg/dL (<150); Vitamin D 25-OH Total 18.8 ng/mL (>30)
[2024-12-27 13:17] LABS: Folate 13.7 ng/mL (> or = 4.0); Vitamin B12 337 pg/mL (200-900)
== END 2024-12-27 11:37 | disposition home or self-care (01) ==
LOC: HO.US 11:36
DX: Z00.00 Encounter for general adult medical examination without abnormal findings (principal); N94.6 Dysmenorrhea, unspecified; E78.00 Pure hypercholesterolemia, unspecified; R35.89 Other polyuria
CPT/HCPCS: 36415; 76830; 76856; 80053; 80061; 81003; 82306; 82607; 82746; 84443; 85025

== ENCOUNTER → 2024-12-27 14:03 | Outpatient (BNV) | payer OTHER, SELFPAY | PROVIDERS: Visit Provider Radiology Vascular & Interventional Radiology | DX: N85.00 Endometrial hyperplasia, unspecified (principal) | CPT/HCPCS: 76830; 76856 ==

== ENCOUNTER 2025-04-04 08:02 | Outpatient (REF) | payer OTHER, SELFPAY ==
--- NOTE | 2025-04-04 08:08 | PFT_ITS ---
Flows: FEV1: 102 % of predicted at 2.91 L FVC: 95 % of predicted at 3.20 L FEV1/FVC: 91 % Bronchodilator response: Absent Volumes: Total lung capacity: 87 % of predicted at 4.04 L Residual volume: 79 % of predicted at 0.86 L Slow vital capacity: 88 % of predicted at 3.18 L Expiratory reserve volume: 49 % of predicted at 0.55 L Diffusion capacity: Normal. Impression: No obstructive or restrictive ventilatory defect. No bronchodilator response. Decreased expiratory reserve volume suggests extrathoracic restriction likely secondary to abdominal obesity. MTDD
[2025-04-04 08:47] VITALS: PULSE 79; O2SAT 100
== END 2025-04-04 08:03 | disposition home or self-care (01) ==
LOC: HO.RESP 08:02
DX: R06.02 Shortness of breath (principal)
CPT/HCPCS: 94010; 94640; 94727; 94729

== ENCOUNTER → 2025-04-04 08:08 | Outpatient (BNV) | payer OTHER, SELFPAY | PROVIDERS: Visit Provider Internal Medicine Pulmonary Disease | DX: R06.00 Dyspnea, unspecified (principal) | CPT/HCPCS: 94060; 94727; 94729 ==

== ENCOUNTER 2025-04-04 09:13 | Outpatient (AMB) | payer OTHER, SELFPAY ==
[2025-04-04 09:47] VITALS: BP 122/84; PULSE 89; TEMP 36.7; O2SAT 99; BMI 30.2
--- NOTE | 2025-04-04 09:47 | AM.OFFWIN_ITS ---
Intake Vital Signs 04/04/25 09:47 Height 5 ft 1 in Weight 160 lb BMI 30.2 BP 122/84 Blood Pressure Location Rt brachial Position Sitting Pulse 89 Pulse Source Pulse Oximeter Temp 98.1 F Temp Source Oral Pulse Oximetry (%) 99 Oxygen Delivery Method Room Air Intake Visit Reasons: EP pain on RT side underneath the breast Intake Note: Pt presents to the office today for c/o right sided pain under breast x2 weeks. Pt states after she eats it is more painful and states she has been experiencing acid reflux. Patient Tobacco Use Status: Never used Tobacco Allergies vancomycin [VANCOMYCIN] Allergy (Severe, Verified 04/04/25 09:51) Anaphylaxis dupilumab [From Dupixent Pen] Adverse Reaction (Verified 04/04/25 09:51) tachycardia HPI HPI Comments History of Present Illness Details History of Present Illness - The patient is a 34-year-old female pr esenting with abdominal pain and bloating. - Experiencing persistent, sharp abdomin al pain for two weeks with radiation to the back. - Symptoms are exacerbated when eating. - Relevant past medical history includes cholelithiasis noted in an ultrasound several years ago. - Experiencing associated heartburn and nausea without fever or chills. - Famotidine has been used for heartburn relief but does not alleviate abdominal pain. She has been taking it as needed and not daily. - She denies fever, chills, CP, SOB, vag inal discharge, vaginal bleeding, dysuria, hematuria, rashes, diarrhea, melena, or constipation. Physical Exam General: Cooperative, healthy appearing, comfortable, no acute distress and well developed Respiratory: Normal respiratory effort and able to speak in complete sentences. Clear to auscultation bilaterally Cardiovascular: Regular rate and rhythm. Normal S1 and S2 GI: Normal to inspection. Hypoactive BS noted. Tender to palpation of the RUQ and epigastric region with guarding noted. No rebound tenderness noted. Negative Dowling's. Negative CVA tenderness noted Skin: No rashes or lesions noted. No yellow to the skin Patient was informed and verbally consented to the use of an ambient scribe for clinic note documentation during this visit. [facility] Medical History Psoriasis Localized swelling, mass and lump, neck History of COVID-19 History of kidney stones Depot contraception state Post term Encounter for supervision of normal in third trimester Breech presentation of fetus palpable vaginally Abdominal cramping affecting , antepartum Group B streptococcal bacteriuria COVID-19 Surgical History H/O oral surgery Hx of tubal ligation History of excision of mass Family History Father Medical history unknown Mother Heart valve problem Brother Epilepsy Maternal Grandmother Breast cancer Paternal Grandmother Hypertension Social History Household Members: Significant Other and Children Housing: Apartment Alcohol intake: never Patient Tobacco Use Status: Never used Tobacco e-Cigarette/Vaping Use: Never Used Second Hand Smoke Exposure: No service: No Current occupational status: unemployed Sexual orientation: Straight/Heterosexual Gender identity: Female Cognitive needs: No Hearing needs: No Vision needs: No Female Reproductive History Menstrual Age of Menarche: 12 Review of Systems Const All systems reviewed & are unremarkable except as noted in HPI and below Physical Exam Vital Signs: Last Vital Signs Temp 98.1 F 04/04/25 09:47 Pulse 89 04/04/25 09:47 BP 122/84 04/04/25 09:47 Pulse Ox 99 04/04/25 09:47 Oxygen Delivery Method Room Air 04/04/25 09:47 BMI result Body Mass Index 30.2 Assessment & Plan Assessment & Plan (1) RUQ pain: Code(s): R10.11 - Right upper quadrant pain Plan Most likely choledocholithiasis vs cholelithiasis vs GERD VS PUD Plan - Discussed with patient that she needs labs and an u/s to further assess her pain and evaluate gallbladder status for stones or obstruction. - Continue managing dyspepsia with famotidine as necessary while noting it does not relieve abdominal pain. - Advise dietary modifications, particularly avoiding fatty foods to limit aggravation of symptoms. - Suggest follow-up with the primary care physician at [facility] for ongoing care. - Will send her PCP a message regarding ordering the labs and u/s for her. - Advised the ER for further evaluation and patient wants to wait for her PCP to call her back. Coding Level of Care Code Est Pt Level 4 (43042) Diagnoses RUQ pain R10.11
== END 2025-04-04 11:06 | disposition home or self-care (01) ==
PROVIDERS: Visit Provider Physician Assistant Medical
DX: R10.11 Right upper quadrant pain (principal)

== ENCOUNTER 2025-07-18 07:42 | Outpatient (REF) | payer OTHER, SELFPAY ==
[2025-07-18 10:23] LABS: Alanine Aminotransferase 43 U/L (0-31); Albumin Level 4.7 g/dL (3.5-5.0); Alkaline Phosphatase 85 U/L (39-117); Aspartate Amino Transferase 32 U/L (5-31); Total Protein 7.8 g/dL (6.5-8.0)
[2025-07-18 10:45] LABS: HBS Num1 5.14 mIU/mL (0-7.99); HBc Num1 0.07 S/CO (0.00-0.79); HBsAGNum1 0.29 S/CO (0.00-0.99); Hepatitis B Surface Antigen Negative (Negative); ~HepC Num1 0.07 S/CO (0.00-0.79); ~Hepatitis B Surface Antibody NONREACTIVE (Nonreactive); ~Hepatitis C Antibody Nonreactive (Nonreactive)
== END 2025-07-18 07:43 | disposition home or self-care (01) ==
LOC: HO.LAB 07:42
DX: R79.89 Other specified abnormal findings of blood chemistry (principal); K21.9 Gastro-esophageal reflux disease without esophagitis; H92.03 Otalgia, bilateral; L40.9 Psoriasis, unspecified; L50.9 Urticaria, unspecified; R07.9 Chest pain, unspecified; N94.6 Dysmenorrhea, unspecified; Z79.899 Other long term (current) drug therapy
CPT/HCPCS: 36415; 80076; 86704; 86706; 86803; 87340; 99212

== ENCOUNTER 2025-07-18 07:42 | Outpatient (AMB) | payer OTHER, SELFPAY ==
[2025-07-18 08:01] VITALS: BP 118/72; PULSE 68; O2SAT 99; BMI 32.9
--- NOTE | 2025-07-18 08:01 | MHC.PC.OV ---
Vital Signs 07/18/25 08:01 Height 5 ft 1 in Weight 174 lb BMI 32.9 BP 118/72 Blood Pressure Location Lt brachial Position Sitting Pulse 68 Pulse Source Pulse Oximeter Pulse Oximetry (%) 99 Oxygen Delivery Method Room Air Intake Visit Reasons: bump behind rt ear/ swelling Allergies vancomycin (VANCOMYCIN) Allergy (Severe, Verified 07/18/25 08:09) Anaphylaxis dupilumab (From Dupixent Pen) Adverse Reaction (Verified 07/18/25 08:09) tachycardia Medication List - Last Reconciled 07/18/25 by Lamar Jensen PA-C betamethasone dipropionate 0.05% 1 appl topical BID cholecalciferol (vitamin D3) 25 mcg PO DAILY famotidine 40 mg PO BEDTIME ketoconazole 2% 1 appl topical 2XW tacrolimus 0.1% topical Tobacco use date assessed: 12/22/24 Dental Screening Dental Screen Date: 12/22/24 HPI bump behind rt ear/ swelling HPI Details 35-year-old female with past medical history of low vitamin-D, psoriasis and GERD last seen 11/2024 coming in for acute problem. Presenting with management of psoriasis, evaluation of gastroesophageal reflux disease, and assessment of musculoskeletal chest pain. The patient reports worsening psoriasis affecting multiple areas, including the face and ears. She continues using existing creams without new treatments. GERD: The patient experiences severe heartburn, particularly in the morning, affecting her sleep. She is currently on famotidine but finds it ineffective. Ordered for upper GI series and recommend rescheduling with her GI specialist. Musculoskeletal chest pain: The patient describes left-sided stabbing pain, exacerbated by stress and physical activity, persisting even at rest. She was recently [place] [facility] [place] concern and had full workup. Allergic reaction: The patient experiences daily skin bumps, suspected to be an allergic reaction, possibly related to mold exposure. The bumps will appear every morning and resolve within a few hours. The bumps are itchy and are not currently present. No one else in the house has these bumps and she has been monitoring for bed bugs and has not found anything. Ear pain: The patient reports bilateral ear pain, possibly linked to psoriasis, without any new topical treatments. The pain initially started on the right side but is now on both sides. She described the pain as under the ears and does not identify any alleviating or triggering factors. Denies any discharge or pain within the ears. Ovary pain: The patient has left-sided ovary pain, with previous ultrasounds showing no abnormalities, related to her menstrual cycle. [facility] Medical History Psoriasis Localized swelling, mass and lump, neck History of COVID-19 History of kidney stones Depot contraception state Post term Encounter for supervision of normal in third trimester Breech presentation of fetus palpable vaginally Abdominal cramping affecting , antepartum Group B streptococcal bacteriuria COVID-19 Surgical History H/O oral surgery Hx of tubal ligation History of excision of mass Family History Father Medical history unknown Mother Heart valve problem Brother Epilepsy Maternal Grandmother Breast cancer Paternal Grandmother Hypertension Social History Household Members: Significant Other and Children Housing: Apartment Alcohol intake: never Patient Tobacco Use Status: Never used Tobacco Tobacco use type: Cigarette e-Cigarette/Vaping Use: Never Used Second Hand Smoke Exposure: No service: No Current occupational status: unemployed Sexual orientation: Straight/Heterosexual Gender identity: Female Cognitive needs: No Hearing needs: No Vision needs: No Female Reproductive History Menstrual Age of Menarche: 12 Questionnaire PHQ-9 Over the last 2 weeks, how often have you been bothered by any of the following problems? 1. Little interest or pleasure in doing things: not at all 2. Feeling down, depressed, or hopeless: not at all 3. Trouble falling or staying asleep, or sleeping too much: not at all 4. Feeling tired or having little energy: not at all 5. Poor appetite or overeating: not at all 6. Feeling bad about yourself - or that you are a failure or have let yourself or your family down: not at all 7. Trouble concentrating on things, such as reading the newspaper or watching television: not at all 8. Moving or speaking so slowly that other people could have noticed. Or the opposite - being so fidgety or restless that you have been moving around a lot more than usual: not at all 9. Thoughts that you would be better off or of hurting yourself in some way: not at all Total score: 0 Depression Screening Interpretation: Negative Depression Screening Done: Yes Source: Developed by Drs. Bryon Lo, Rosa M Ford, Rory Palomares and colleagues, with an educational chuckie from [employer]. Thrive Questionnaire Date Thrive assessed: 07/18/25 I am a: Patient What is your living situation today?: I have a steady place to live Within the past 12 months, did the food you bought not last and you didn't have the money to get more?: Never true Within the past 12 months, did you worry whether your food would run out before you got money to buy more?: Never true Do you have trouble paying for medicines?: No Do you have trouble getting transportation to medical appointments?: No Do you have trouble paying your heating and electricity bill?: No Do you have trouble taking care of your child, family member or friend?: No Do you have trouble with day-to-day activities such as bathing, preparing meals, shopping, managing finances, etc.?: No Are you currently unemployed and looking for a job?: Yes Are you interested in more education?: No Please select the resources that you would like help with: None Currently or been in a relationship where the following occur: No concerns reported THRIVE Score: 0 AUDIT C Alcohol Use Questionnaire (AUDIT-C) 1. How often do you have a drink containing alcohol?: Never 3. How often do you have six or more drinks on one occasion?: Never Total Score: 0 LYNDA-7 AMB Questionnaire LYNDA-7 Date LYNDA - 7 assessed: 07/18/25 Feeling nervous, anxious, or on edge: 0 = Not at all Not being able to stop or control worryin = Not at all Worrying too much about different things: 0 = Not at all Trouble relaxin = Not at all Being so restless that it is hard to sit still: 0 = Not at all Becoming easily annoyed or irritable: 0 = Not at all Feeling afraid as if something awful might happen: 0 = Not at all Total LYNDA-7 score (0-4 normal; 5-9 mild; 10-14 moderate; 15-21 severe): 0 Source: Developed by Drs. Bryon Lo, Rosa M Ford, Rory Palomares and colleagues, with an educational chuckie from [employer]. Review of Systems Const Denies body aches, Denies chills, Denies fever(s), Denies headache(s) and Denies poor appetite Eyes Reports no additional complaints ENT Reports as per HPI, Denies dysphagia, Denies dizziness, Denies headache(s) and Denies odynophagia Card Reports as per HPI, Denies chest pain, Denies edema, Denies irregular heart rhythm, Denies lightheadedness and Denies dyspnea Resp Denies dyspnea GI Denies abdominal pain, Denies dysphagia, Reports dyspepsia, Reports heartburn, Denies diarrhea, Denies nausea, Denies odynophagia and Denies vomiting Reports no additional complaints Musc Reports as per HPI and Denies abnormal gait Skin/Breast Reports system reviewed and no additional complaints, except as documented Neuro Denies abnormal gait, Denies dizziness and Denies headache(s) Psych Reports no additional complaints Physical exam (Primary Care) Vital Signs: Last Vital Signs Pulse 68 07/18/25 08:01 BP 118/72 07/18/25 08:01 Pulse Ox 99 07/18/25 08:01 Oxygen Delivery Method Room Air 07/18/25 08:01 BMI result Body Mass Index 32.9 Tobacco/Smoking Status: Tobacco use Status Tobacco use date assessed 12/22/24 07/18/25 08:05 Patient Tobacco Use Status Never used Tobacco 07/18/25 08:05 Tobacco use type Cigarette 07/18/25 08:05 e-Cigarette/Vaping Use Never Used 07/18/25 08:05 PHQ-9: PHQ-9 Score PHQ-9: Total score 0 07/18/25 08:35 Depression Screening Interpretation: Negative Thrive Assessment: Date of Thrive Assessment Date Thrive assessed 07/18/25 07/18/25 08:05 Currently or been in a relationship where the following occur: No concerns reported Const General: cooperative, healthy appearing, comfortable and no acute distress Orientation/consciousness: patient oriented x3 HENMT Head: Yes normocephalic Ears: hearing grossly normal bilaterally, external ears abnormal (psoriatic lesions under peggy lobes), TM's normal bilaterally, EAC's normal and mastoids normal General nose exam: Normal external nose present Eyes General: appearance normal, both eyes and all related structures Conjunctivae: conjunctivae normal Neck Neck: Yes full ROM and Yes no lymphadenopathy Chest Other: no TTP of left side of the chest Resp Effort & Inspection: normal respiratory effort Auscultation: clear to auscultation bilaterally, no crackles, no rales, no rhonchi and no wheezes Cardio Rate: regular rate Rhythm: regular rhythm GI Palpation (GI): Soft to palpation, not firm, nontender, no guarding and not rigid Skin General skin exam: no rashes or lesions noted Neuro General: patient oriented x3 Gait exam (Neuro): Normal gait present Extrem General: Yes normal to inspection, Yes full ROM and No edema Psych Affect: normal affect Attitude: cooperative Insight: Good insight present (Psych) Judgement: Good judgement present (Psych) Coding Level of Care Code Est Pt Level 4 (98551) Diagnoses GERD (gastroesophageal reflux disease) K21.9 Psoriasis L40.9 Hives L50.9 Left-sided chest pain R07.9 Acute pain of both ears H92.03 Dysmenorrhea N94.6 Assessment & Plan Assessment & Plan (1) GERD (gastroesophageal reflux disease): Code(s): K21.9 - Gastro-esophageal reflux disease without esophagitis Category: Medical Plan: Avoid trigger foods such as citrus, tomato products, soda, caffeine, spicy foods and other foods that may be irritating to your stomach. Avoid laying flat 3-4 hours after eating and elevate the head of the bed 30 degrees to prevent acid from moving into the esophagus. The patient will switch from famotidine to omeprazole for better management of her GERD symptoms. She will also be referred to gastroenterology for further evaluation and management. Upper GI series ordered as well. (2) Psoriasis: Comment: Versus eczema versus other patient is currently being treated with Dupixent immune suppressant and will be having another biopsy Code(s): L40.9 - Psoriasis, unspecified Category: Medical Plan: The patient will be referred to dermatology for further management of her psoriasis, which has been worsening and affecting multiple areas including the face and ears. Cream sent to pharmacy (3) Hives: Code(s): L50.9 - Urticaria, unspecified Category: Medical Plan: The patient will be referred to an stroboroma operator to evaluate the suspected allergic reaction, potentially related to mold exposure in her home. Recommend daily antihistamine. We discussed washing her linens and clothes in hot water and avoiding heavily scented soaps or perfumes. (4) Left-sided chest pain: Code(s): R07.9 - Chest pain, unspecified Category: Medical Plan: The patient is advised to use heating pads and avoid activities that exacerbate the pain. She recently [place] [facility] [place] plan to obtain these notes. (5) Acute pain of both ears: Code(s): H92.03 - Otalgia, bilateral Category: Medical Plan: The patient is advised to continue using her current psoriasis creams and consider using a mouthguard at night to alleviate potential jaw clenching contributing to the pain. No evidence of infection on exam. (6) Dysmenorrhea: Code(s): N94.6 - Dysmenorrhea, unspecified Category: Medical Plan: She will continue to follow with gynecology and has upcoming appointment. Plan This note was constructed using voice recognition software. While every effort has been made to ensure accuracy and joiner helper, still areas may have been included sometimes these areas may affect the content or meeting of the given symptoms. Total time spent caring for the patient today was 20 minutes. This includes time spent before the visit reviewing the chart, time spent during the visit, and time spent after the visit and documentation. Patient was informed and verbally consented to the use of an ambient scribe for clinic note documentation during this visit. Orders: Orders [place] upper GI series Today K21.9 - Gastro-esophageal reflux disease without esophagitis H pylori Ag Stool Today K21.9 - Gastro-esophageal reflux disease without esophagitis, R12 - Heartburn Referrals Dermatology Referral L40.9 - Psoriasis, unspecified Allergy & Immunology Referral L50.9 - Urticaria, unspecified Medications: New omeprazole 40 mg PO DAILY 90 caps 0RF betamethasone dipropionate 0.05% 1 appl topical BID 45 grams 0RF Discontinued famotidine Discontinued Reason: Patient no longer taking 40 mg PO BEDTIME 30 tabs 3RF R12 - Heartburn
== END 2025-07-18 08:45 | disposition home or self-care (01) ==
LOC: HO.HMCH 07:42
DX: K21.9 Gastro-esophageal reflux disease without esophagitis (principal); L40.9 Psoriasis, unspecified; L50.9 Urticaria, unspecified; R07.9 Chest pain, unspecified; H92.03 Otalgia, bilateral; N94.6 Dysmenorrhea, unspecified

== ENCOUNTER 2025-07-20 12:35 | Outpatient (REF) | payer OTHER, SELFPAY | END 2025-07-20 12:36 | disposition home or self-care (01) | LOC: HO.LNP 12:35 | DX: K21.9 Gastro-esophageal reflux disease without esophagitis (principal); R12 Heartburn | CPT/HCPCS: 87338 ==

== ENCOUNTER 2025-07-27 12:41 | Outpatient (REF) | payer OTHER, SELFPAY ==
[2025-08-04 18:19] LABS: Venous Lead <1.0 mcg/dL (<3.5)
== END 2025-07-27 12:42 | disposition home or self-care (01) ==
LOC: HO.LAB 12:41
DX: Z13.88 Encounter for screening for disorder due to exposure to contaminants (principal)
CPT/HCPCS: 36415; 83655

== ENCOUNTER 2025-09-10 15:28 | Outpatient (AMB) | payer OTHER, SELFPAY ==
[2025-09-10 16:15] VITALS: BP 104/70; PULSE 79; RESP 18; O2SAT 100; BMI 33.3
--- NOTE | 2025-09-10 16:15 | A.OFFPC_ITS ---
Vital Signs 09/10/25 16:15 Height 5 ft 1 in Weight 176 lb 2 oz BMI 33.3 BP 104/70 Blood Pressure Location Lt brachial Position Sitting Respiration 18 Pulse 79 Pulse Source Pulse Oximeter Temp Source Temporal Artery Scan Pulse Oximetry (%) 100 Oxygen Delivery Method Room Air Intake Visit Reasons: Pain in jaw and ear when chewing Leather Carver Required: No Accompanied by: Self / Same As Patient Allergies vancomycin (VANCOMYCIN) Allergy (Severe, Verified 09/10/25 16:18) Anaphylaxis dupilumab (From Dupixent Pen) Adverse Reaction (Verified 09/10/25 16:18) tachycardia Medication List - Last Reconciled 09/10/25 by Guerita Villalta MD betamethasone dipropionate 0.05% 1 appl topical BID cholecalciferol (vitamin D3) 25 mcg PO DAILY omeprazole 40 mg PO DAILY tacrolimus 0.1% topical Tobacco use date assessed: 09/10/25 Dental Screening Dental Screen Date: 09/10/25 Did you have a dental visit in the last 12 months?: Yes Did you have a dental problem in the last 6 months where you did not have access to dental care?: No Was dental information given to patient?: Patient has dentist HPI HPI Comments History of Present Illness Details The patient is a 35-year-old female with PMH GERD, psoriasis presenting with jaw pain. She reports pain in her jaw that also affects her ear, which worsens significantly with eating. A prior physician suggested a mouth guard, which was not effective. The patient has a history of psoriasis, which she notes is currently severe and worsens with cold seasons. The psoriasis affects her scalp, ears, chest, and legs. She has previously been on strong medications that provided some initial relief but ultimately became ineffective and caused side effects. The patient reports recent unintentional weight gain, which she suspects may be related to stress from a family issue involving one of her children. REPLACED BY [facility] Medical History Psoriasis Localized swelling, mass and lump, neck History of COVID-19 History of kidney stones Depot contraception state Post term Encounter for supervision of normal in third trimester Breech presentation of fetus palpable vaginally Abdominal cramping affecting , antepartum Group B streptococcal bacteriuria COVID-19 Surgical History H/O oral surgery Hx of tubal ligation History of excision of mass Family History Father Medical history unknown Mother Heart valve problem Brother Epilepsy Maternal Grandmother Breast cancer Paternal Grandmother Hypertension Social History Household Members: Significant Other and Children Housing: Apartment Alcohol intake: never Patient Tobacco Use Status: Never used Tobacco Tobacco use type: Cigarette e-Cigarette/Vaping Use: Never Used Second Hand Smoke Exposure: No service: No Current occupational status: unemployed Sexual orientation: Straight/Heterosexual Gender identity: Female Cognitive needs: No Hearing needs: No Vision needs: No Female Reproductive History Menstrual Age of Menarche: 12 Questionnaire Thrive Questionnaire Date Thrive assessed: 07/18/25 I am a: Patient What is your living situation today?: I have a steady place to live Within the past 12 months, did the food you bought not last and you didn't have the money to get more?: Never true Within the past 12 months, did you worry whether your food would run out before you got money to buy more?: Never true Do you have trouble paying for medicines?: No Do you have trouble getting transportation to medical appointments?: No Do you have trouble paying your heating and electricity bill?: No Do you have trouble taking care of your child, family member or friend?: No Do you have trouble with day-to-day activities such as bathing, preparing meals, shopping, managing finances, etc.?: No Are you currently unemployed and looking for a job?: Yes Are you interested in more education?: No Please select the resources that you would like help with: None Currently or been in a relationship where the following occur: No concerns reported THRIVE Score: 0 LYNDA-7 AMB Questionnaire LYNDA-7 Date LYNDA - 7 assessed: 07/18/25 Source: Developed by Drs. Bryon Lo, Rosa M Ford, Rory Palomares and colleagues, with an educational chuckie from [employer]. Review of Systems Const Details: As per HPI. Physical exam (Primary Care) Vital Signs: Last Vital Signs Pulse 79 09/10/25 16:15 Resp 18 09/10/25 16:15 BP 104/70 09/10/25 16:15 Pulse Ox 100 09/10/25 16:15 Oxygen Delivery Method Room Air 09/10/25 16:15 BMI result Body Mass Index 33.3 Tobacco/Smoking Status: Tobacco use Status Tobacco use date assessed 09/10/25 09/10/25 16:21 Patient Tobacco Use Status Never used Tobacco 09/10/25 16:21 Tobacco use type Cigarette 09/10/25 16:21 e-Cigarette/Vaping Use Never Used 09/10/25 16:21 Thrive Assessment: Date of Thrive Assessment Date Thrive assessed 07/18/25 09/10/25 16:21 Currently or been in a relationship where the following occur: No concerns reported Const Other: Pertinent findings are in BOLD GENERAL APPEARANCE NAD, activity normal for age, well developed/ well nourished, no cyanosis, pallor, or diaphoresis. EYES lids/conjunctiva normal. EARS/NOSE/THROAT Mucous membranes moist, nares normal, lips/teeth normal uvula midline without oral pharyngeal erythema, exudate or swelling TMs normal bilaterally. No lymphangitis/lymphedema. HEAD/NECK normocephalic atraumatic, no facial trauma, neck is supple. RESPIRATORY respiratory effort normal, speaks in full sentences, no tripod position, no accessory muscle use. Lungs clear to auscultation without rhonchi, wheezes, rales CARDIAC Regular rate and rhythm, no edema. ABDOMINAL Soft, ND/NT. No evidence of fluid wave. No pulsatile masses on exam, rebound tenderness, Dowling sign or pain over Mcburney's point. MUSCLES/EXTREMITIES No abnormal range of motion, no swelling. SKIN Warm, pink and dry. No rashes, dermatoses, petechiae or lesions. NEUROLOGICAL Speech is clear and appropriate. Normal level of consciousness. Gait and coordination are normal. 5/5 strength in all extremities. PSYCH Normal mood and affect. 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 - A referral will be made to an ENT specialist for further evaluation and management discussion. - Recommended conservative management with intermittent application of ice or heat to the affected area. - The patient was informed that physical therapy could also be a potential treatment taught by the specialist. (2) Psoriasis: Comment: Versus eczema versus other patient is currently being treated with Dupixent immune suppressant and will be having another biopsy Code(s): L40.9 - Psoriasis, unspecified Category: Medical Plan: - The patient's psoriasis is severe and has been refractory to previous medications. - Provided extensive counseling on the relationship between autoimmune diseases and diet. - An elimination diet was recommended, advising the patient to sequentially stop dairy products, gluten, sugars, and red meat to identify potential dietary triggers. - Acknowledged the patient's concern that environmental factors, such as mold and lead in her home, may be exacerbating her condition. Plan I explained to the patient that her symptoms of jaw and ear pain are characteristic of temporomandibular joint (TMJ) disorder. I recommended she see an ENT specialist for a comprehensive evaluation and to discuss further treatment options, such as physical therapy, and in the meantime, she can try applying ice or heat to the area for symptom relief. Regarding her severe psoriasis, I advised a trial of an elimination diet, suggesting she remove dairy, gluten, sugars, and red meat from her diet sequentially to see if her symptoms improve. We discussed that her high sugar intake is likely contributing to both her recent weight gain and her psoriasis flares. I explained that cutting out sugar would help with weight loss, energy levels, and overall well-being. I warned her that she may experience withdrawal symptoms like headaches, which is a sign of sugar dependency, but that these symptoms would pass. Orders: Referrals Ear/Nose/Throat Referral M26.659 - Arthropathy of unspecified temporomandibular joint
--- OUTSIDE RECORDS SUMMARY | 2025-09-11 06:03 | XMS_ITS | Clinical Summary ---
Author Organization [facility] Address [address] [place] [address] Phone Care Team Providers Care Sample Cutter Name Role Phone Lexus Ayala MD Primary Care Provider [phone] Allergies Active Allergy Reactions Criticality Noted Date Comments Iodinated Contrast Media Hives Medium 08/08/2025 Vancomycin 08/07/2025 Medications dicyclomine (BENTYL) 20 mg tablet Take 1 tablet (20 mg total) by mouth 2 (two) times a day for 10 days. 20 tablet 08/18/20 25 ketorolac (TORADOL) 10 mg tablet Take 1 tablet (10 mg total) by mouth every 6 (six) hours if needed for moderate pain for up to 5 days. 20 tablet 08/13/20 25 Encounters Date Type Department Care Team Description 08/08/2025 12:13 AM EDT - 08/08/2025 5:16 AM EDT Emergency [facility] Emergency [address] [place] [address] RLQ abdominal pain (Primary Dx); Allergic to IV contrast Discharge Disposition: Home or Self Care from Last 3 Months Social History Tobacco Use Types Packs/Day Years Used Date Smoking Tobacco: Never Assessed Comments No Sex and Gender Information Value Date Recorded Sex Assigned at Not on file Legal Sex Female 10:51 AM EST Gender Identity Not on file Sexual Orientation Not on file Obstetrics History Last Filed Vital Signs Vital Sign Reading Time Taken Comments Blood Pressure 116/71 08/08/2025 4:57 AM EDT Pulse 77 08/08/2025 4:57 AM EDT Temperature 36.4 C (97.5 F) 08/08/2025 4:57 AM EDT Respiratory Rate 18 08/08/2025 4:57 AM EDT Oxygen Saturation 100% 08/08/2025 4:57 AM EDT Inhaled Oxygen Concentration - - Weight 78.9 kg (174 lb) 08/07/2025 9:14 PM EDT Height 154.9 cm (5' 1 ) 08/07/2025 9:14 PM EDT Body Mass Index 32.88 08/07/2025 9:14 PM EDT Plan of Treatment Health Maintenance Due Date Last Done Comments Hepatitis B Vaccines (1 of 3 - 19+ 3-dose series) 2010 Cervical Cancer Screening: P ap Smear 2012 HPV Vaccines (1 - 3-dose SCD M series) 2018 Depression Screening 10/25/2024 COVID-19 Vaccine ( - 2024-2 6 season) 2025 Influenza Vaccine (#1) 2025 , 12/25/2019, 12/02/2015 HIV Screening 08/08/2025 Hepatitis C Screening 08/08/2025 Social Influencers of Health Screening 08/08/2025 DTaP,Tdap,and Td Vaccines (2 - Td or Tdap) 10/21/2025 10/21/2015 RSV Immunization Adult Patients (1 - 1-dose 75+ series) 2066 HIB Vaccines Aged Out No longer eligi ble based on patient's age to complete this topic Hepatitis A Vaccines Aged Out No long er eligible based on patient's age to complete this topic IPV Vaccines Aged Out No longer eligi ble based on patient's age to complete this topic MMR Vaccines Aged Out No longer eligi ble based on patient's age to complete this topic Meningococcal ACWY Vaccine Aged Out N o longer eligible based on patient's age to complete this topic Meningococcal B Vaccine Aged Out No l onger eligible based on patient's age to complete this topic Pneumococcal Vaccine: Pediatrics (0 to 5 Years) and At-Risk Patients (6 to 49 Years) Aged Out No longer eligible b ased on patient's age to complete this topic RSV Immunization Patients Under 20 months Aged Out No longer eligible b ased on patient's age to complete this topic Varicella Vaccines Aged Out No longer eligible based on patient's age to complete this topic Procedures Procedure Name Priority Date/Time Associated Diagnosis Comments CT ABDOMEN PELVIS W CONTRAST STAT 08/08/2025 1:52 AM EDT HCG, SERUM, QUALITATIVE STAT Add-on 08/07/2025 9:35 PM EDT CBC WITH AUTO DIFFERENTIAL STAT 08/07/2025 9:35 PM EDT LIPASE STAT 08/07/2025 9:35 PM EDT COMPREHENSIVE METABOLIC PANEL STAT 08/07/2025 9:35 PM EDT CBC AND DIFFERENTIAL STAT 08/07/2025 9:35 PM EDT from Last 3 Months Results * CT Abdomen Pelvis w Contrast (08/08/2025 1:52 AM EDT) Anatomical Region Laterality Modality Body Computed Tomogra phy 08/08/2025 2:07 AM EDT Impressions 08/08/2025 2:07 AM EDT No acute findings. Normal appendix. This document has been electronically signed by: Charan Ashby MD on 08/08/2025 02:07:02 Narrative 08/08/2025 2:07 AM EDT INDICATION: Rule out appendicitis CT abdomen and pelvis with contrast Comparison: None provided Findings: The lung bases are clear. Unremarkable gallbladder and solid organs. No urolithiasis. No bowel obstruction, pneumoperitoneum, or pneumatosis. Pelvic contents unremarkable. Normal appendix. No acute fracture. Procedure Note Charan Ashby - 08/08/2025 INDICATION: Rule out appendicitis CT abdomen and pelvis with contrast Comparison: None provided Findings: The lung bases are clear. Unremarkable gallbladder and solid organs. No urolithiasis. No bowel obstruction, pneumoperitoneum, or pneumatosis. Pelvic contents unremarkable. Normal appendix. No acute fracture. IMPRESSION: No acute findings. Normal appendix. This document has been electronically signed by: Charan Ashby MD on 08/08/2025 02:07:02 Agnieszka Geeta Wanzer PA IMG CT PROCEDURES Final Result * (ABNORMAL) CBC auto differential (08/07/2025 9:35 PM EDT) [facility] WBC 8.2 4.8 - 10.8 K/mcL LAB HEMETOLOGY METHOD 08/07/2025 11:15 PM EDT [facility] RBC 4.70 3.80 - 4.80 M/mcL LAB HEMETOLOGY METHOD 08/07/2025 11:15 PM EDT [facility] Hemoglobin 12.4 11.5 - 16.0 g/dL LAB HEMETOLOGY METHOD 08/07/2025 11:15 PM EDT [facility] Hematocrit 38.9 35.0 - 47.0 % LAB [facility] MCV 82.4 79.0 - 98.0 FL LAB [facility]OLOGY [facility] MCH 26.3(L) 27.0 - 32.0 pcg LAB HEMETOLOGY METHOD 08/07/2025 11:15 PM EDT [facility] MCHC 31.9(L) 32.0 - 37.0 g/dL LAB HEMETOLOGY METHOD [facility]07[facility] RDW 13.2 11.0 - 15.0 % LAB HEMETOLOGY METHOD 08/07/2025 11:15 PM EDT [facility] Platelets 305 130 - 400 K/[facility] LAB HEMETOLOGY METHOD 08/07/2025 11:15 PM EDT [facility] MPV 10.9 7.0 - 11.0 FL LAB HEMETOLOGY METHOD 08/07[facility] NRBC 0.0 <1.0 % LAB HEMETOLOGY METHOD 08/07/2025 11:15 PM EDT [facility] NRBC Absolute 0.00 <0.10 K/mcL LAB HEMETOLOGY METHOD 08/07/2025 11:15 PM EDT [facility] Neutrophils Relative 69.7 % LAB HEMETOLOGY METHOD 08/07/2025 11:15 PM EDT [facility] Lymphocytes Relative 20.9 % LAB HEMETOLOGY METHOD 08/07/2025 11:15 PM EDT [facility] Monocytes Relative 6.1 % LAB HEMETOLOGY METHOD 08/07/2025 11:15 PM EDT [facility] Eosinophils Relative 2.1 % LAB HEMETOLOGY METHOD [facility] Basophils Relative 0.8 % LAB HEMETOLOGY METHOD [facility] Immature Granulocytes Relative 0.4 % LAB HEMETOLOGY METHOD 08/07/2025 11:15 PM EDT [facility] Neutrophils Absolute 5.75 1.50 - 7.00 K/mcL LAB HEMETOLOGY METHOD 08/07/2025 11:15 PM EDT [facility] Lymphocytes Absolute 1.72 1.00 - 5.00 K/mcL LAB HEMETOLOGY METHOD [facility]/07[facility] Monocytes Absolute 0.50 0.20 - 1.00 K/mcL LAB HEMETOLOGY METHOD 08/07/2025 11:15 PM EDT [facility] Eosinophils Absolute 0.17 0.00 - 0.50 K/mcL LAB HEMETOLOGY METHOD 08/07/2025 11:15 PM EDT [facility] Basophils Absolute 0.07 0.00 - 0.20 K/mcL LAB HEMETOLOGY METHOD [facility]07[facility] Immature Granulocytes Absolute 0.03 0.00 - 0.03 K/mcL LAB HEMETOLOGY METHOD 08/07/2025 11:15 PM EDT [facility] Blood Venous blood specimen / Unknown Venipuncture / Unknown 08/07/2025 9:35 PM EDT 08/07/2025 11:04 PM EDT Agnieszka RICARDO LAB BLOOD ORDERABLES Fin al Result [facility] [address] [place] [address], [place] [phone] * hCG Qualitative (08/07/2025 9:35 PM EDT) Pathologist [facility] hCG Qual Negative Negative 08/08/2025 1:23 AM EDT [facility] Blood Venous blood specimen / Unknown Venipuncture / Unknown 08/07/2025 9:35 PM EDT 08/07/2025 11:04 PM EDT Agnieszka RICARDO LAB BLOOD ORDERABLES Fin al Result Performing Organization Address City/[facility]/ZIP Co de Phone Number [facility] [address] [place] [address], [place] [phone] * Lipase (08/07/2025 9:35 PM EDT) Lipase 28 13 - 75 unit/L LAB CHEMISTRY METHOD 08/07/2025 11:37 PM EDT [facility] Blood Venous blood specimen / Unknown Venipuncture / Unknown 08/07/2025 9:35 PM EDT 08/07/2025 11:04 PM EDT Agnieszka RICARDO LAB BLOOD ORDERABLES Fin al Result [facility] [address] [place] [address], [place] [phone] * Comprehensive metabolic panel (08/07/2025 9:35 PM EDT) Sodium 139 133 - 145 mmol/L LAB CHEMISTRY METHOD 08/07/2025 11:38 PM [facility] Potassium 3.8 3.5 - 5.5 mmol/L LAB CHEMISTRY METHOD 08/07/2025 11:38 PM [facility] Chloride 107 96 - 110 mmol/L LAB CHEMISTRY METHOD 08/07/2025 11:38 PM [facility] CO2 26 21 - 32 mmol/L LAB CHEMISTRY METHOD 08/07/2025 11:38 PM [facility] Anion Gap 6 3 - 11 LAB CHEMISTRY METHOD 08/07/2025 11:38 PM [facility] Glucose 100 70 - 100 mg/dL LAB CHEMISTRY METHOD 08/07/2025 11:38 PM [facility] BUN 7 5 - 25 mg/dL LAB CHEMISTRY METHOD 08/07/2025 11:38 PM [facility] Creatinine 0.56 0.50 - 1.10 mg/dL LAB CHEMISTRY METHOD 08/07/2025 11:38 PM [facility] eGFR 123 >=60 mL/min/1. 73m2 LAB CHEMISTRY METHOD 08/07/2025 11:38 PM [facility] Comment:Calculation based on the Chronic Kidney Disease Epidemiology Collaboration (CKD-EPI) equation refit without adjustment for race. BUN/Creatinine Ratio 12.5 LAB CHEMISTRY METHOD 08/07/2025 11:38 PM [facility] Calcium 9.3 8.5 - 10.5 mg/dL LAB CHEMISTRY METHOD 08/07/2025 11:38 PM [facility] AST (SGOT) 27 10 - 42 unit/L LAB CHEMISTRY METHOD 08/07/2025 11:38 PM [facility] ALT (SGPT) 39 10 - 60 unit/L LAB CHEMISTRY METHOD 08/07/2025 11:38 PM EDT [facility] Alkaline Phosphatase 87 42 - 121 unit/L LAB CHEMISTRY METHOD 08/07/2025 11:38 PM EDT [facility] Total Protein 7.7 6.0 - 8.0 g/dL LAB CHEMISTRY METHOD 08/07/2025 11:38 PM EDT [facility] Albumin 4.0 3.2 - 5.0 g/dL LAB CHEMISTRY METHOD 08/07/2025 11:38 PM EDT [facility] Total Bilirubin 0.8 0.0 - 1.4 mg/dL LAB CHEMISTRY METHOD 08/07/2025 11:38 PM EDT [facility] Blood Venous blood specimen / Unknown Venipuncture / Unknown 08/07/2025 9:35 PM EDT 08/07/2025 11:04 PM EDT Agnieszka RICARDO LAB BLOOD ORDERABLES Fin al Result [facility] [address] [place] [address], from Last 3 Months Insurance [facility] [employer] Care Teams Sample Cutter Relationship Specialty Start Date End Date Lexus Ayala MD [address] [place] [address] , [address] [facility] D/B/A: [facility] [place] shar[place] PCP - General Internal Medicine 01/10/21
== END 2025-09-10 16:43 | disposition home or self-care (01) ==
LOC: HO.HMCH 15:29
PROVIDERS: Visit Provider Internal Medicine
DX: M26.653 Arthropathy of bilateral temporomandibular joint (principal); L40.9 Psoriasis, unspecified

== ENCOUNTER → 2025-09-10 15:28 | Outpatient (BNVA) | payer OTHER, SELFPAY | PROVIDERS: Visit Provider Internal Medicine | DX: R68.84 Jaw pain (principal); M26.653 Arthropathy of bilateral temporomandibular joint; L40.9 Psoriasis, unspecified | CPT/HCPCS: 99212 ==